=== PATIENT | female | born 1990 | race Caucasian/White ===

== ENCOUNTER 2022-01-01 11:15 | Emergency (ER) | payer BC, SELFPAY ==
--- NOTE | ~2022-01-01 | US_ITS ---
EXAMINATION: US pelvic complete w TV DATE: 01/01/2022 12:47 INDICATION: Pelvic pain Comparison:No prior studies for comparison. TECHNIQUE: Multiple transabdominal and endovaginal sonographic images of the pelvis performed. FINDINGS: The uterus measures 8 x 3.3 x 4.1 cm. There is an IUD in the endometrium. The endometrial c omplex measures 4.7 mm. The right ovary measures 4.6 x 2.4 x 4.5 cm and the left ovary measures 4.1 x 2.2 x 2.9 cm. There is a 1.7 cm right ovarian cyst. There are small follicles in each ovary. Normal doppler signal in both o varies. There is no free fluid in the pelvis. There are no abnormal masses seen on either side. IMPRESSION: 1. Right ovarian cyst measuring 1.7 cm. Reviewed, dictated and finalized at location A.
[2022-01-01 11:26] VITALS: BP 127/98; PULSE 84; RESP 18; TEMP 36.3; O2SAT 100
[2022-01-01 11:45] LABS: Basophils Percent Auto 0.6 % (0.2-1.2); Eosinophils Absolute Auto 0.1 K/mm3 (0-0.3); Eosinophils Percent Auto 2.5 % (0-4.4); Hematocrit 40.7 % (37.0-47.0); Hemoglobin 13.6 g/dL (12.0-15.0); Immature Granulocyte Absolute 0.01 K/mm3 (0.00-0.031); Immature Granulocyte Percent A 0.2 % (0-0.5); Lymphocytes Absolute Auto 1.49 K/mm3 (0.9-3.2); Lymphocytes Percent Auto 28.6 % (18.3-44.2); Mean Corpuscular HGB Conc 33.4 g/dl (32-36); Mean Corpuscular Hemoglobin 29.7 pg (26-34); Mean Corpuscular Volume 88.9 fl (80-100); Mean Platelet Volume 10.3 fl (7.4-10.4); Monocytes Absolute Auto 0.5 K/mm3 (0.1-0.6); Monocytes Percent Auto 9.2 % (2.6-8.5); Neutrophils Absolute Auto 3.1 K/mm3 (1.3-6.7); Neutrophils Percent Auto 58.9 % (45.5-73.1); Platelet Count Result 225 k/mm3 (150-375); Red Blood Count 4.58 M/mm3 (4.2-5.4); Red Cell Distribution Width 12.3 % (11.5-14.5); White Blood Count 5.2 K/mm3 (4.5-10.0)
[2022-01-01 11:47] LABS: Appearance Urine Clear (Clear); Bilirubin Urine Negative (Negative); Blood Urine Negative (Negative); Color Urine Yellow (Yellow); Glucose Urine UA Negative (Negative); Ketones Urine Negative (Negative); Leukocyte Esterase Ur Trace LEU/UL (Negative); Nitrate Urine Negative (Negative); Protein Urine Negative (Negative); Specific Grav Ur 1.025 (1.001-1.035); Urobilinogen Urine 0.2 mg/dL (<2.0); pH Urine 5.5 (5.0-9.0)
[2022-01-01 11:50] LABS: Bacteria Urine Trace /hpf; Mucus Urine Rare /lpf; RBC Urine 0-2 /hpf (0-2); Squamous Epithelial Cell Urine Many /hpf (Few); WBC Urine 0-3 /hpf
[2022-01-01 11:52] LABS: Add Urine Microscopic? NO
[2022-01-01 11:56] LABS: Alanine Aminotransferase 20 U/L (6-35); Albumin Level 4.8 g/dL (3.5-5.1); Alkaline Phosphatase 55 U/L (38-126); Anion Gap 12 mmol/L (8-16); Aspartate Amino Transferase 27 U/L (14-36); Bilirubin,Total 1.3 mg/dL (0.2-1.3); Blood Urea Nitrogen 8 mg/dL (7-17); Calcium 9.4 mg/dL (8.4-10.2); Carbon Dioxide 25 mmol/L (22-30); Chloride 104 mmol/L (98-107); Estimated CRCL calculation 81 ml/min; Estimated Glomerular Filt Rate > 60; Glucose 93 mg/dL (65-110); Lipase 72 U/L (23-300); Potassium 4.2 mmol/L (3.4-5.0); Sodium 141 mmol/L (137-145)
--- NOTE | 2022-01-01 12:11 | ED.ABDPAIN ---
HPI - Abdominal Pain General Chief Complaint: Abdominal Pain Stated Complaint: abd cramping Time Seen by Provider: 01/01/22 12:02 Source: RN notes reviewed History of Present Illness HPI narrative: Patient presents emergency room from home for abdominal pain. Patient states symptoms began yesterday afternoon the pain is located bilateral lower quadrants but is worse in the left lower quadrant. Pain described as sharp and stabbing and does not radiate. Patient states she did try taking Tylenol at home with no relief she denies any fevers or chills chest pain shortness of breath nausea vomiting diarrhea or any other symptoms. States that she has a history of ovarian cysts but usually they improved with Tylenol Related Data Allergies Allergy/AdvReac Type Severity Reaction Status Date / Time Sulfa (Sulfonamide Allergy Hives Verified 01/01/22 11:47 Antibiotics) Review of Systems Review of Systems: Gen.: Denies fevers or chills Eyes: Denies eye pain or visual change ENT: Denies congestion Respiratory: Denies shortness of breath or cough CV: Denies chest pain GI: See HPI denies burning, urgency, frequency or hematuria Musculoskeletal: Denies back pain or muscle pain Neuro: Denies numbness, tingling, weakness or focal weakness Skin: Denies rash Except as documented, all other systems reviewed and negative [facility] Past Medical History Medical History Anxiety Migraines Surgical History Surgical History Hx of breast lump removal (~2018) Family History Family History Mother Melanoma Social History Social History Social History: Caffeine-300mg daily Smoking status: Never smoker Alcohol intake: current Alcohol use details: wine or beer occasionally Exam Narrative: APPEARANCE: No acute distress, nontoxic, resting in bed HEENT: Normocephalic, atraumatic, OMM RESPIRATORY: No respiratory distress, clear to auscultation bilaterally with no rhonchi wheezing or rales CARDIOVASCULAR: RRR s murmur ABDOMINAL: Soft nondistended tender palpation in left lower quadrant and right lower quadrant worse on left no tenderness in right upper quadrant and left upper quadrant no rebound or guarding MUSCULOSKELETAl: Moves all extremities. No clubbing, cyanosis or edema. NEURO: Awake and alert. Following commands, speech normal, no focal deficits SKIN:: Warm, dry. Normal Color PSYCHIATRIC: Normal affect/mood Course Course Emergency Course: Patient states that they are feeling much better at this time. States abdominal pain has improved.. Discussed with patient results of workup and diagnosis. Discussed need for follow-up with primary care physician, reasons to return to the emergency department in proper use of medication. Patient understands and agrees to current treatment plan. The patient has an PRODUCT MANAGEMENT CONSULTANT that she follows with at [facility] Vital Signs Vital signs: Vital Signs Temperature 97.4 F L 01/01/22 11:26 Pulse Rate 84 01/01/22 11:26 Respiratory Rate 18 01/01/22 11:26 Blood Pressure 127/98 H 01/01/22 11:26 Pulse Oximetry 100 01/01/22 11:26 Temperature 97.4 F L 01/01/22 11:26 Pulse Rate 84 01/01/22 11:26 Respiratory Rate 18 01/01/22 11:26 Blood Pressure 127/98 H 01/01/22 11:26 Pulse Oximetry 100 01/01/22 11:26 MDM - Abdominal Pain MDM Narrative Medical decision making narrative: Patient's abdomen is soft without significant pain or signs of surgical abdomen on serial exams. Lab and x-ray evaluations are reviewed and patient is felt to be a reasonable candidate for outpatient management. Patient was instructed as to limitations of x-ray and laboratory evaluation and encouraged to return to ED or primary physician for repeat exam in 12 hours if continued or worsen
[2022-01-01] MEDS: KETOROLAC 30 MG/ML VIAL (*BKC) IV PUSH (12:40)
[2022-01-01] MEDS: SODIUM CHLORIDE 0.9% IV 1,000 ML 999 ML IV CONT (12:40)
[2022-01-01 13:33] VITALS: BP 125/78; PULSE 66; RESP 14; O2SAT 100
== END 2022-01-01 13:34 | disposition home or self-care (01) ==
PROVIDERS: Emergency Medicine; Emergency Provider Emergency Medicine
DX: N83.201 Unspecified ovarian cyst, right side (principal)
CPT/HCPCS: 36415; 76830; 76856; 80053; 81003; 81025; 83690; 85025; 96361; 96374; 99284; J1885; J7030

== ENCOUNTER 2022-07-02 15:39 | Outpatient (CLI) | payer BC, SELFPAY ==
[2022-07-02 19:54] LABS: Basophils Absolute Auto 0.1 K/mm3 (0.0-0.1); Basophils Percent Auto 0.8 % (0.2-1.2); Eosinophils Absolute Auto 0.2 K/mm3 (0-0.3); Eosinophils Percent Auto 2.6 % (0-4.4); Hematocrit 42.1 % (37.0-47.0); Hemoglobin 13.7 g/dL (12.0-15.0); Immature Granulocyte Absolute 0.03 K/mm3 (0.00-0.031); Immature Granulocyte Percent A 0.4 % (0-0.5); Lymphocytes Absolute Auto 1.95 K/mm3 (0.9-3.2); Lymphocytes Percent Auto 26.6 % (18.3-44.2); Mean Corpuscular HGB Conc 32.5 g/dl (32-36); Mean Corpuscular Hemoglobin 29.9 pg (26-34); Mean Corpuscular Volume 91.9 fl (80-100); Mean Platelet Volume 10.9 fl (7.4-10.4); Monocytes Absolute Auto 0.6 K/mm3 (0.1-0.6); Monocytes Percent Auto 7.6 % (2.6-8.5); Neutrophils Absolute Auto 4.6 K/mm3 (1.3-6.7); Platelet Count Result 258 k/mm3 (150-375); Red Blood Count 4.58 M/mm3 (4.2-5.4); Red Cell Distribution Width 12.9 % (11.5-14.5); White Blood Count 7.3 K/mm3 (4.5-10.0)
[2022-07-02 20:02] LABS: Alanine Aminotransferase 26 U/L (6-35); Albumin Level 4.6 g/dL (3.5-5.1); Alkaline Phosphatase 56 U/L (38-126); Anion Gap 12 mmol/L (8-16); Aspartate Amino Transferase 30 U/L (14-36); Bilirubin,Total 0.6 mg/dL (0.2-1.3); Blood Urea Nitrogen 14 mg/dL (7-17); Calcium 9.1 mg/dL (8.4-10.2); Carbon Dioxide 24 mmol/L (22-30); Chloride 104 mmol/L (98-107); Estimated Glomerular Filt Rate > 60; Glucose 102 mg/dL (65-110); Sodium 140 mmol/L (137-145)
[2022-07-02 20:11] LABS: Rheumatoid Factor < 8.6 IU/ML (<12)
[2022-07-02 20:26] LABS: Erythrocyte Sedimentation Rate 12 mm/hr (0-20)
[2022-07-02 20:51] LABS: Vitamin D 25 Hydroxy 39.7 ng/mL
[2022-07-07 07:18] LABS: Anti Nuclear Antibody Pattern Nuclear, Speckled
== END 2022-07-02 15:40 | disposition home or self-care (01) ==
LOC: ANHGOSHLAB 15:40
PROVIDERS: PCP Nurse Practitioner; Visit Provider Nurse Practitioner
DX: M25.40 Effusion, unspecified joint (principal); R53.83 Other fatigue; E55.9 Vitamin D deficiency, unspecified; E53.8 Deficiency of other specified B group vitamins
CPT/HCPCS: 36415; 80053; 82306; 82607; 84443; 85025; 85652; 86038; 86039; 86430

== ENCOUNTER 2022-08-29 08:47 | Outpatient (CLI) | payer BC, SELFPAY ==
--- NOTE | ~2022-08-29 | XR_ITS ---
EXAMINATION: XR foot LT standing 2V DATE: 08/29/2022 09:13 INDICATION: Systemic involvement of connective tissue, unspecified. TECHNIQUE: 2 views of left foot standing were obtained. COMPARISON: None. FINDINGS: Bone alignment is normal. No fracture. Joint spaces are well maintained. IMPRESSION: 1. Normal left foot. Reviewed, dictated and finalized at location A. RVISOR BENZENE REFINING IMPRESSION: 1. Normal left foot.
--- NOTE | ~2022-08-29 | XR_ITS ---
EXAMINATION: XR foot RT standing 2V DATE: 08/29/2022 09:13 INDICATION: Systemic involvement of connective tissue, unspecified. TECHNIQUE: 2 views of the right foot standing were obtained. COMPARISON: None. FINDINGS: Bone alignment is normal. No fracture. Joint spaces are well maintained. IMPRESSION: 1. Normal right foot. Reviewed, dictated and finalized at location A. EY BOY IMPRESSION: 1. Normal right foot.
--- NOTE | ~2022-08-29 | XR_ITS ---
EXAMINATION: XR hand BI arthritis min 3V DATE: 08/29/2022 09:13 INDICATION: Systemic involvement of connective tissue, unspecified. Multiple joint pain. TECHNIQUE: 4 views of right hand and 4 views of left hand on a total of 7 radiographs were obtained. COMPARISON: None. FINDINGS: RIGHT HAND: Bone alignment is normal. No fracture. Joint spaces are well maintained. LEFT HAND: Bone alignment is normal. No fracture. Joint spaces are well maintained. IMPRESSION: 1. No arthritis. Reviewed, dictated and finalized at location A. STIGATIVE WRITER IMPRESSION: 1. No arthritis.
== END 2022-08-29 08:48 ==
PROVIDERS: PCP Internal Medicine; Visit Provider Internal Medicine
DX: M35.9 Systemic involvement of connective tissue, unspecified (principal)
CPT/HCPCS: 73130; 73620

== ENCOUNTER 2022-08-29 09:44 | Outpatient (CLI) | payer BC, SELFPAY ==
[2022-08-29 17:37] LABS: Alanine Aminotransferase 24 U/L (6-35); Alkaline Phosphatase 56 U/L (38-126); Anion Gap 9 mmol/L (8-16); Aspartate Amino Transferase 36 U/L (14-36); Bilirubin,Total 0.7 mg/dL (0.2-1.3); Blood Urea Nitrogen 12 mg/dL (7-17); CRP 0.6 mg/dL (<1.0); Calcium 9.2 mg/dL (8.4-10.2); Carbon Dioxide 26 mmol/L (22-30); Chloride 100 mmol/L (98-107); Estimated Glomerular Filt Rate > 60; Glucose 84 mg/dL (65-110); Potassium 3.9 mmol/L (3.4-5.0); Sodium 135 mmol/L (137-145)
[2022-08-29 17:38] LABS: Complement C3 109 mg/dL (88-165)
[2022-08-29 18:03] LABS: Basophils Absolute Auto 0.1 K/mm3 (0.0-0.1); Basophils Percent Auto 1.3 % (0.2-1.2); Eosinophils Absolute Auto 0.2 K/mm3 (0-0.3); Eosinophils Percent Auto 3.7 % (0-4.4); Hematocrit 44.5 % (37.0-47.0); Hemoglobin 14.5 g/dL (12.0-15.0); Lymphocytes Absolute Auto 1.37 K/mm3 (0.9-3.2); Lymphocytes Percent Auto 29.9 % (18.3-44.2); Mean Corpuscular HGB Conc 32.6 g/dl (32-36); Mean Corpuscular Hemoglobin 29.6 pg (26-34); Mean Corpuscular Volume 90.8 fl (80-100); Mean Platelet Volume 10.9 fl (7.4-10.4); Monocytes Absolute Auto 0.5 K/mm3 (0.1-0.6); Monocytes Percent Auto 9.8 % (2.6-8.5); Neutrophils Absolute Auto 2.5 K/mm3 (1.3-6.7); Neutrophils Percent Auto 55.3 % (45.5-73.1); Platelet Count Result 244 k/mm3 (150-375); Red Cell Distribution Width 12.3 % (11.5-14.5); White Blood Count 4.6 K/mm3 (4.5-10.0)
[2022-08-29 18:14] LABS: Appearance Urine Clear (Clear); Bilirubin Urine Negative (Negative); Blood Urine Negative (Negative); Color Urine Yellow (Yellow); Glucose Urine UA Negative (Negative); Ketones Urine Negative (Negative); Leukocyte Esterase Ur Negative LEU/UL (Negative); Nitrate Urine Negative (Negative); Protein Urine Negative (Negative); Specific Grav Ur >= 1.030 (1.001-1.035); Urobilinogen Urine 0.2 mg/dL (<2.0); pH Urine 5.5 (5.0-9.0)
[2022-08-29 18:15] LABS: Add Urine Microscopic? NO
[2022-08-29 18:33] LABS: Erythrocyte Sedimentation Rate 8 mm/hr (0-20)
[2022-09-02 10:34] LABS: SM Antibody <1.0; SM/RNP Antibody <1.0; SS-A <1.0; SS-B <1.0
[2022-09-04 13:20] LABS: Lupus dRVVT Screen 35 sec (<=45); PTT-LA Screen 32 sec (<=40)
[2022-09-04 20:37] LABS: Anti Cyclic Citrullinated Pept <16 Units (<20)
[2022-09-11 15:20] LABS: Lupus dRVVT Additional Testing Not Indicated
== END 2022-08-29 09:45 | disposition home or self-care (01) ==
LOC: ANHGOSHLAB 09:46
PROVIDERS: PCP Internal Medicine; Visit Provider Internal Medicine
DX: M35.9 Systemic involvement of connective tissue, unspecified (principal); M19.90 Unspecified osteoarthritis, unspecified site
CPT/HCPCS: 36415; 80053; 81003; 85025; 85613; 85652; 85730; 86140; 86160; 86200; 86225; 86235

== ENCOUNTER 2023-03-24 10:52 | Outpatient (CLI) | payer BC, SELFPAY ==
[2023-03-24 14:04] LABS: Hematocrit 42.2 % (37.0-47.0); Hemoglobin 13.7 g/dL (12.0-15.0); Mean Corpuscular HGB Conc 32.5 g/dl (32-36); Mean Corpuscular Hemoglobin 29.8 pg (26-34); Mean Corpuscular Volume 91.9 fl (80-100); Mean Platelet Volume 10.7 fl (7.4-10.4); Platelet Count Result 223 k/mm3 (150-375); Red Blood Count 4.59 M/mm3 (4.2-5.4); Red Cell Distribution Width 12.6 % (11.5-14.5); White Blood Count 4.6 K/mm3 (4.5-10.0)
[2023-03-24 14:06] LABS: Appearance Urine Clear (Clear); Bacteria Urine None Seen /hpf; Bilirubin Urine Negative (Negative); Blood Urine Negative (Negative); Color Urine Yellow (Yellow); Glucose Urine UA Negative (Negative); Ketones Urine Trace mg/dL (Negative); Leukocyte Esterase Ur Negative LEU/UL (NEGATIVE); Nitrate Urine Negative (Negative); Non Pathogenic Casts 0-2; Protein Urine 1+ mg/dL (Negative); RBC Urine 0-2 /hpf (0-2); Specific Grav Ur 1.028 (1.001-1.035); Squamous Epithelial Cell Urine Occasional /hpf (Few); WBC Urine 0-5 /hpf (0-3); pH Urine 6.5 (5.0-9.0)
[2023-03-24 14:18] LABS: Add Urine Microscopic? YES
[2023-03-24 14:28] LABS: Blood Urea Nitrogen 10 mg/dL (7-17); CRP < 0.5 mg/dL (<1.0); Estimated Glomerular Filt Rate > 60
[2023-03-24 14:45] LABS: Erythrocyte Sedimentation Rate 9 mm/hr (0-20)
[2023-03-24 23:15] LABS: Creatinine Urine 294.5 mg/dL
[2023-03-24 23:46] LABS: Total Protein Urine Random < 5 mg/dL; Ur Ttl Prot Creatinine Ratio < 0.02 mg/mg (0-0.20)
== END 2023-03-24 10:53 | disposition home or self-care (01) ==
LOC: ANHGOSHLAB 10:55
PROVIDERS: PCP Internal Medicine
DX: M32.8 Other forms of systemic lupus erythematosus (principal)
CPT/HCPCS: 36415; 81001; 82565; 82570; 84156; 84520; 85027; 85652; 86140

== ENCOUNTER 2023-06-25 08:16 | Outpatient (NON) | payer BC, SELFPAY | END 2023-06-25 08:17 | disposition home or self-care (01) | LOC: ANHGOSHLAB 08:18 | PROVIDERS: PCP Family Medicine; Visit Provider Nurse Practitioner Family | DX: R63.5 Abnormal weight gain (principal) | CPT/HCPCS: 82530 ==

== ENCOUNTER 2023-08-20 09:57 | Outpatient (RCR) | payer BC, SELFPAY ==
[2023-08-20 18:46] LABS: Hematocrit 42.4 % (37.0-47.0); Hemoglobin 13.7 g/dL (12.0-15.0); Mean Corpuscular HGB Conc 32.3 g/dl (32-36); Mean Corpuscular Hemoglobin 29.9 pg (26-34); Mean Corpuscular Volume 92.6 fl (80-100); Mean Platelet Volume 10.6 fl (7.4-10.4); Platelet Count Result 263 k/mm3 (150-375); Red Blood Count 4.58 M/mm3 (4.2-5.4); Red Cell Distribution Width 12.4 % (11.5-14.5); White Blood Count 5.2 K/mm3 (4.5-10.0)
[2023-08-20 19:04] LABS: Alanine Aminotransferase 20 U/L (6-35); Appearance Urine Cloudy (Clear); Aspartate Amino Transferase 52 U/L (14-36); Bacteria Urine Rare /hpf; Bilirubin Urine Negative (Negative); Blood Urine Negative (Negative); CRP < 0.5 mg/dL (<1.0); Color Urine Yellow (Yellow); Cystine Crystals Urine Present /hpf; Glucose Urine UA Negative (Negative); Ketones Urine Negative (Negative); Leukocyte Esterase Ur 1+ LEU/UL (NEGATIVE); Need Manual Microscopic Reviewed; Nitrate Urine Negative (Negative); Non Pathogenic Casts 0-2; Protein Urine Negative (Negative); Specific Grav Ur 1.015 (1.001-1.035); Squamous Epithelial Cell Urine Moderate /hpf (Few); Urobilinogen Urine 0.2 mg/dL (<2.0); WBC Urine 0-5 /hpf (0-3); pH Urine 5.5 (5.0-9.0)
[2023-08-20 19:05] LABS: Add Urine Microscopic? YES
[2023-08-20 19:41] LABS: Erythrocyte Sedimentation Rate 15 mm/hr (0-20)
[2023-08-20 21:01] LABS: Creatinine Urine 117.1 mg/dL
[2023-08-20 21:39] LABS: Total Protein Urine Random < 5 mg/dL; Ur Ttl Prot Creatinine Ratio < 0.04 mg/mg (0-0.20)
== END 2023-11-18 23:59 | disposition home or self-care (01) ==
LOC: ANHGOSHLAB 09:57
PROVIDERS: PCP Family Medicine
DX: M32.8 Other forms of systemic lupus erythematosus (principal)
CPT/HCPCS: 36415; 81001; 82570; 84156; 84450; 84460; 85027; 85652; 86140

== ENCOUNTER 2023-09-10 16:25 | Outpatient (CLI) | payer BC, SELFPAY | END 2023-09-10 16:26 | disposition home or self-care (01) | LOC: ANHGOSHLAB 16:26 | PROVIDERS: PCP Family Medicine; Visit Provider Nurse Practitioner Family | DX: R30.0 Dysuria (principal) | CPT/HCPCS: 87086 ==

== ENCOUNTER 2023-09-22 08:12 | Outpatient (CLI) | payer BC, SELFPAY ==
[2023-09-22 11:48] LABS: Hematocrit 41.1 % (37.0-47.0); Hemoglobin 13.3 g/dL (12.0-15.0); Mean Corpuscular HGB Conc 32.4 g/dl (32-36); Mean Corpuscular Hemoglobin 29.8 pg (26-34); Mean Corpuscular Volume 91.9 fl (80-100); Mean Platelet Volume 11.5 fl (7.4-10.4); Platelet Count Result 186 k/mm3 (150-375); Red Blood Count 4.47 M/mm3 (4.2-5.4); White Blood Count 4.1 K/mm3 (4.5-10.0)
[2023-09-22 11:52] LABS: Appearance Urine Clear (Clear); Bacteria Urine 3+ /hpf; Bilirubin Urine Negative (Negative); Blood Urine Negative (Negative); Color Urine Yellow (Yellow); Glucose Urine UA Negative (Negative); Ketones Urine Negative (Negative); Leukocyte Esterase Ur 2+ LEU/UL (NEGATIVE); Nitrate Urine Negative (Negative); Protein Urine Trace mg/dL (Negative); Specific Grav Ur 1.025 (1.001-1.035); Squamous Epithelial Cell Urine Moderate /hpf (Few); Urobilinogen Urine 0.2 mg/dL (<2.0); WBC Urine 21-50 /hpf (0-3)
[2023-09-22 11:57] LABS: Add Urine Microscopic? YES
[2023-09-22 12:10] LABS: Alanine Aminotransferase 16 U/L (6-35); Aspartate Amino Transferase 34 U/L (14-36); Blood Urea Nitrogen 10 mg/dL (7-17); CRP < 0.5 mg/dL (<1.0); Estimated Glomerular Filt Rate > 60
[2023-09-22 12:20] LABS: Creatinine Urine 194.7 mg/dL
[2023-09-22 12:21] LABS: Erythrocyte Sedimentation Rate 10 mm/hr (0-20)
[2023-09-22 12:40] LABS: Total Protein Urine Random < 5 mg/dL; Ur Ttl Prot Creatinine Ratio < 0.03 mg/mg (0-0.20)
== END 2023-09-22 08:13 | disposition home or self-care (01) ==
LOC: ANHGOSHLAB 08:16
PROVIDERS: PCP Family Medicine
DX: M32.8 Other forms of systemic lupus erythematosus (principal)
CPT/HCPCS: 36415; 81001; 82565; 82570; 84156; 84450; 84460; 84520; 85027; 85652; 86140

== ENCOUNTER → 2023-12-02 10:41 | Outpatient (REF) | payer BC, SELFPAY | LOC: ANHLAB 10:41 | PROVIDERS: PCP Family Medicine; Visit Provider Plastic Surgery | DX: D48.5 Neoplasm of uncertain behavior of skin (principal) | CPT/HCPCS: 88305 ==

== ENCOUNTER 2023-12-21 11:29 | Outpatient (CLI) | payer BC, SELFPAY ==
--- NOTE | ~2023-12-21 | US_ITS ---
EXAMINATION: US soft tissue head and neck DATE: 12/21/2023 11:45 INDICATION: Localized enlarged lymph nodes. TECHNIQUE: Multiple grayscale and Doppler ultrasound images of the head and neck were obtained. COMPARISON: None FINDINGS: There is a normal lymph node in left neck in the patient's area of concern. IMPRESSION: 1. Normal lymph node in left neck in the patient's area of concern. Reviewed, dictated and finalized at location A.
== END 2023-12-21 11:30 ==
LOC: GOSHIMG 11:30
PROVIDERS: PCP Family Medicine; Visit Provider Nurse Practitioner
DX: R59.0 Localized enlarged lymph nodes (principal)
CPT/HCPCS: 76536

== ENCOUNTER 2024-03-23 14:33 | Outpatient (CLI) | payer BC, SELFPAY ==
[2024-03-23 19:39] LABS: Hematocrit 41.8 % (37.0-47.0); Mean Corpuscular HGB Conc 33.5 g/dl (32-36); Mean Corpuscular Hemoglobin 30.4 pg (26-34); Mean Corpuscular Volume 90.9 fl (80-100); Mean Platelet Volume 11.1 fl (7.4-10.4); Platelet Count Result 255 k/mm3 (150-375); Red Cell Distribution Width 12.2 % (11.5-14.5)
[2024-03-23 19:57] LABS: Add Urine Microscopic? YES; Appearance Urine Clear (Clear); Bacteria Urine None Seen /hpf; Bilirubin Urine Negative (Negative); Blood Urine Negative (Negative); Color Urine Yellow (Yellow); Glucose Urine UA Negative (Negative); Ketones Urine Negative (Negative); Leukocyte Esterase Ur Trace LEU/UL (Negative); Nitrate Urine Negative (Negative); Non Pathogenic Casts 0-2; Protein Urine Negative (Negative); RBC Urine 0-2 /hpf (0-2); Specific Grav Ur 1.012 (1.001-1.035); Squamous Epithelial Cell Urine None Seen /hpf (Few); Urobilinogen Urine 0.2 mg/dL (<2.0); WBC Urine 0-5 /hpf (0-3); pH Urine 5.5 (5.0-9.0)
[2024-03-23 19:58] LABS: Alanine Aminotransferase 17 U/L (6-35); Aspartate Amino Transferase 35 U/L (14-36); Blood Urea Nitrogen 13 mg/dL (7-17); CRP < 0.5 mg/dL (<1.0); Estimated Glomerular Filt Rate > 60
[2024-03-23 20:07] LABS: Creatinine Urine 70.7 mg/dL
[2024-03-23 20:10] LABS: Total Protein Urine Random < 5 mg/dL; Ur Ttl Prot Creatinine Ratio < 0.07 mg/mg (0-0.20)
== END 2024-03-23 14:34 | disposition home or self-care (01) ==
LOC: ANHGOSHLAB 14:35
PROVIDERS: PCP Family Medicine
DX: M32.8 Other forms of systemic lupus erythematosus (principal)
CPT/HCPCS: 36415; 81001; 82565; 82570; 84156; 84450; 84460; 84520; 85027; 86140

== ENCOUNTER 2024-05-21 21:52 | Emergency (ER) | payer BC, SELFPAY ==
--- NOTE | ~2024-05-21 | US_ITS ---
EXAMINATION: US OB <=14 wk fetus w TV DATE: 05/22/2024 00:39 INDICATION: Abdominal pain and and vaginal bleeding TECHNIQUE: Real-time pelvic ultrasound utilizing both a transvaginal and transabdominal probe was pe rformed. The interpreting radiologist was not present for the study. COMPARISON: None. FINDINGS: The uterus measures 7.4 x 3.4 x 5.5rrrr cm. There are a few anechoic nabothian cysts measuring up to 5 mm. The endometrial complex is thickened to 1.2 cm with 6 mm likely intrauterine gestational sac wi th double decidual sign. No evident internal yolk sac or pole identified. The right ovary measures 4.4 x 2.5 x 2.8 cm. And 1.5 cm isoechoic lesion without evident internal vas cular flow on color Doppler in the right ovary unclear whether solid or more likely complex cystic ei ther hemorrhagic cyst or corpus luteum cyst. The left ovary measures 3.3 x 2.4 x 2.5 cm. There is a t race amount of anechoic free fluid in the pelvis. IMPRESSION: 1. 6 mm intrauterine gestational sac without evident yolk sac or pole which remains equivocal f or early versus failed . Recommend correlation with serial beta-hCG levels with repeat imagi ng as clinically indicated. 2. 1.5 cm right ovarian lesion most likely a hemorrhagic cyst or corpus luteum cyst although differen tial would include a solid neoplasm. Recommend 6-12 week follow-up pelvic ultrasound. Reviewed, dictated and finalized at location A. IMPRESSION: 1. 6 mm intrauterine gestational sac without evident yolk sac or pole whi ch remains equivocal for early versus failed . Recommend correlation w ith serial beta-hCG levels with repeat imaging as clinically indicated. 2. 1.5 cm right ovarian lesion most likely a hemorrhagic cyst or corpus luteum cyst although differential would include a solid neoplasm. Recommend 6-12 week follow-up pelvic ultrasound.
[2024-05-21 21:56] VITALS: BP 139/70; PULSE 88; RESP 16; TEMP 36.9; O2SAT 100
[2024-05-21 22:32] VITALS: BP 105/75; PULSE 79; RESP 18; O2SAT 100
[2024-05-21 22:45] LABS: Basophils Absolute Auto 0.1 K/mm3 (0.0-0.1); Eosinophils Absolute Auto 0.2 K/mm3 (0-0.3); Eosinophils Percent Auto 3.6 % (0-4.4); Hematocrit 38.1 % (37.0-47.0); Hemoglobin 12.7 g/dL (12.0-15.0); Immature Granulocyte Absolute 0.01 K/mm3 (0.00-0.031); Immature Granulocyte Percent A 0.2 % (0-0.5); Lymphocytes Absolute Auto 2.06 K/mm3 (0.9-3.2); Lymphocytes Percent Auto 41.3 % (18.3-44.2); Mean Corpuscular HGB Conc 33.3 g/dl (32-36); Mean Corpuscular Hemoglobin 30.3 pg (26-34); Mean Corpuscular Volume 90.9 fl (80-100); Mean Platelet Volume 10.4 fl (7.4-10.4); Monocytes Absolute Auto 0.5 K/mm3 (0.1-0.6); Neutrophils Absolute Auto 2.2 K/mm3 (1.3-6.7); Neutrophils Percent Auto 43.9 % (45.5-73.1); Platelet Count Result 213 k/mm3 (150-375); Red Blood Count 4.19 M/mm3 (4.2-5.4); Red Cell Distribution Width 12.2 % (11.5-14.5)
[2024-05-21 22:56] LABS: Prothrombin Time 13.6 Seconds (11.1-14.7)
[2024-05-21 22:57] LABS: Partial Thromboplastin Time 28.7 Seconds (22.3-36.8)
[2024-05-21 22:58] LABS: Alanine Aminotransferase 17 U/L (6-35); Albumin Level 4.4 g/dL (3.5-5.1); Alkaline Phosphatase 44 U/L (38-126); Anion Gap 8 mmol/L (4-12); Aspartate Amino Transferase 25 U/L (14-36); Bilirubin,Total 0.5 mg/dL (0.2-1.3); Blood Urea Nitrogen 17 mg/dL (7-17); Calcium 9.4 mg/dL (8.4-10.2); Carbon Dioxide 28 mmol/L (22-30); Chloride 104 mmol/L (98-107); Estimated CRCL calculation 69 ml/min; Estimated Glomerular Filt Rate > 60; Glucose 103 mg/dL (65-110); Potassium 4.3 mmol/L (3.4-5.0); Sodium 140 mmol/L (137-145)
--- NOTE | 2024-05-22 00:06 | ED.FEMALEGU ---
HPI - Female Genitourinary General Chief complaint: Vaginal Bleeding <Albino Medina MD - Last Filed: 05/22/24 00:36> Stated complaint: vaginal bleeding, 6 weeks preg <Albino Medina MD - Last Filed: 05/22/24 00:36> Time Seen by Provider: 05/21/24 22:24 <Albino Medina MD - Last Filed: 05/22/24 00:36> Source: patient and family <lAbino Medina MD - Last Filed: 05/22/24 00:36> Mode of arrival: ambulatory <Albino Medina MD - Last Filed: 05/22/24 00:36> Limitations: no limitations <Albino Medina MD - Last Filed: 05/22/24 00:36> History of Present Illness HPI Narrative: 34-year-old 3 para 1 A1 about 6 weeks of gestation here with a complaint of heavy bright red vaginal bleeding for past few hours. She of states that she might have seen some clots. Has some lower abdominal discomfort. Denies being lightheaded. <Albino Medina MD - Last Filed: 05/22/24 00:36> MD elicited complaint: vaginal bleeding <Albino Medina MD - Last Filed: 05/22/24 00:36> Onset (ago): hour(s) (2) <Albino Medina MD - Last Filed: 05/22/24 00:36> Severity: moderate <MD Shawn Castellanos Last Filed: 05/22/24 00:36> Vaginal bleeding: moderate and bright red <MD Shawn Castellanos Last Filed: 05/22/24 00:36> Exacerbating factors: none <MD Shawn Castellanos Last Filed: 05/22/24 00:36> Relieving factors: none <MD Shawn Castellanos Last Filed: 05/22/24 00:36> Associated symptoms: denies other symptoms <MD Shawn Castellanos Last Filed: 05/22/24 00:36> Treatment prior to arrival: none <MD Shawn Castellanos Last Filed: 05/22/24 00:36> Related Data Allergies/Adverse reactions: Allergies Allergy/AdvReac Type Severity Reaction Status Date / Time Sulfa (Sulfonamide Allergy Hives Verified 05/21/24 22:33 Antibiotics) <Albino Medina MD - Last Filed: 05/22/24 00:36> Review of Systems Review of Systems: All systems reviewed & are unremarkable except as noted in HPI and below <Albino Medina MD - Last Filed: 05/22/24 00:36> Constitutional: Constitutional: Reports no additional constitutional complaints <Albino Medina MD - Last Filed: 05/22/24 00:36> Eyes: Eyes: Reports no additional eye complaints <Albino Medina MD - Last Filed: 05/22/24 00:36> ENT: Reports system reviewed and no additional complaints, except as documented <Albino Medina MD - Last Filed: 05/22/24 00:36> Cardiovascular: Cardiovascular: Reports no additional cardiovascular complaints <Albino Medina MD - Last Filed: 05/22/24 00:36> Respiratory: Respiratory: Reports no additional respiratory complaints <Albino Medina MD - Last Filed: 05/22/24 00:36> Gastrointestinal: Gastrointestinal: Reports no additional gastrointestinal complaints <Albino Medina MD - Last Filed: 05/22/24 00:36> Genitourinary: Genitourinary: Reports as per HPI <Albino Medina MD - Last Filed: 05/22/24 00:36> Musculoskeletal: Musculoskeletal: Reports no additional musculoskeletal complaints <Albino Medina MD - Last Filed: 05/22/24 00:36> [facility] Past Medical History Medical History: Medical History Abnormal weight Anxiety Lupus (systemic lupus erythematosus) Migraines Undifferentiated connective tissue disease <Albino Medina MD - Last Filed: 05/22/24 00:36> Surgical History Surgical History: Surgical History Hx of breast lump removal (~2018) Hx of tonsillectomy <Albino Medina MD - Last Filed: 05/22/24 00:36> Family History Family History: Family History Mother Melanoma <Albino Medina MD - Last Filed: 05/22/24 00:36> Social History Social History: Social History Social History: Caffeine-300mg daily Smoking status: Never smoker
[2024-05-22 01:02] VITALS: BP 106/66; PULSE 74; RESP 17; O2SAT 100
== END 2024-05-22 03:35 | disposition home or self-care (01) ==
PROVIDERS: Emergency Medicine; Emergency Provider Family Medicine; PCP Family Medicine
DX: O20.0 Threatened abortion (principal); Z3A.01 Less than 8 weeks gestation of pregnancy
CPT/HCPCS: 36415; 76801; 76817; 80053; 84702; 85025; 85461; 85610; 85730; 86850; 86900; 86901; 99284

== ENCOUNTER 2024-10-04 18:58 | Emergency (ER) | payer BC, SELFPAY ==
--- NOTE | ~2024-10-04 | US_ITS ---
EXAMINATION: US venous doppler LE RT DATE: 10/04/2024 19:48 INDICATION: pain in calf . TECHNIQUE: Grayscale images without and with compression and Doppler images of the right lower extrem ity veins were obtained. COMPARISON: None FINDINGS: The right common femoral vein, profunda (deep) femoral vein, femoral vein, popliteal vein, peroneal v ein, posterior tibial veins, gastrocnemius vein, and greater saphenous vein are patent. IMPRESSION: Patent right lower extremity veins. No evidence of deep venous thrombosis. Reviewed, dictated and finalized at location K. ATIENT CODER
--- OUTSIDE RECORDS SUMMARY | 2024-10-04 19:01 | XMS_ITS | Referral Summary ---
Author Organization [facility] Address [address] [place] [address] Care Team Providers Care Psychologist Research Assistant Name Role Phone Unavailable Primary Care Provider Unavailabl e Source Comments [facility],non-owned Affiliates and Associated Physician Practices is amultiple site organization consisting of ambulatory clinics and hospital sitesin [place], [place], [place]. This disclosure is being madepursuant to the Care Everywhere program and may not contain all information available regarding this patient. Last updated 18.[facility] Allergies Active Allergy Reactions Criticality Noted Date Comments Sulfa Drugs 06/15/2015 Hives Sulfa Drugs Urticaria Medium 12/03/2016 Medications * Be aware that medications may not be up to date on this document. Alwaysverify current medications with the patient. Medication Sig Dispensed Refills Start Date End Date Status citalopram (CELEXA) 40 MG tablet Take 40 mg by mouth once daily Active Other Migraine pill Active naproxen (NAPROSYN) 500 MG tablet Take 1 Tab by mouth 2 times daily as needed for Pain 20 Tab 0 06/15/2015 Active Citalopram Hydrobromide (CITALOPRAM PO) Take 20 mg by mouth Active Social History Tobacco Use Types Packs/Day Years Used Date Smoking Tobacco: Never Smokeless Tobacco: Never Alcohol Use Standard Drinks/Week Comments Yes 0 (1 standard drink = 0.6 oz pur e alcohol) occasional Sex and Gender Information Value Date Recorded Sex Assigned at Not on file Gender Identity Not on file Sexual Orientation Not on file Last Filed Vital Signs Vital Sign Reading Time Taken Comments Blood Pressure 114/68 04/25/2020 9:03 AM CDT Pulse 73 04/25/2020 9:03 AM CDT Temperature 36.6 C (97.9 F) 04/25/2020 9:03 AM CDT Respiratory Rate 18 04/25/2020 9:03 AM CDT Oxygen Saturation 98% 04/25/2020 9:03 AM CDT Inhaled Oxygen Concentration - - Weight 65.8 kg (145 lb) 04/25/2020 9:03 AM CDT Height 157.5 cm (5' 2 ) 04/25/2020 9:03 AM CDT Body Mass Index 26.52 04/25/2020 9:03 AM CDT Plan of Treatment Not on file Administered Medications PATTI HERNANDEZ Personal/Family Spouse [facility] [place] [address] PATTI HERNANDEZ Personal/Family Spouse [address] [place] [address] [place] [address] PATTI HERNANDEZ Personal/Family Spouse [address] [place] [address] [place] [address]
--- OUTSIDE RECORDS SUMMARY | 2024-10-04 19:01 | XMS_ITS | Clinical Summary ---
Author Organization [facility] Address [address] [place] [address] Care Team Providers Care Scrap Metal Processing Worker Name Role Phone Unavailable Primary Care Provider Unavailabl e Source Comments [facility],non-owned Affiliates and Associated Physician Practices is amultiple site organization consisting of ambulatory clinics and hospital sitesin [place], [place], [place] and [place]. This disclosure is being madepursuant to the Care Everywhere program and may not contain all information available regarding this patient. Last updated 18.[facility] Allergies Active Allergy Reactions Criticality Noted Date [...] 04/25/2020 9:03 AM CDT Plan of Treatment Health Maintenance Due Date Last Done Comments PAP SMEAR 1991 HIV SCREENING 2006 HEPATITIS C SCREENING 01/13/2009 DTAP/TDAP/TD VACCINES (1 - Tdap) 2010 HEPATITIS B VACCINE (1 of 3 - 19+ 3-dose series) 2010 COVID-19 VACCINE (2023-2 5 season) 2024 12/13/2020, 11/17/2020 INFLUENZA VACCINE (#1) 2024 05/06/2016 DEPRESSION SCREENING 08/17/2024 ZOSTER VACCINE (1 of 2) 2041 HIB VACCINE Aged Out No longer eligi ble based on patient's age to complete this topic HPV VACCINE Aged Out No longer eligi ble based on patient's age to complete this topic MENINGOCOCCAL (Group B) VACCINE Aged Out No longer eligible b ased on patient's age to complete this topic MENINGOCOCCAL VACCINE Aged Out No zyada jennie eligible based on patient's age to complete this topic PNEUMOCOCCAL VACCINE Aged Out No long er eligible based on patient's age to complete this topic PATTI ESTEVEZ Personal/Family Spouse [facility] [place] [address] PATTI ESTEVEZ Personal/Family Spouse [address] [address] PATTI ESTEVEZ Personal/Family Spouse [address] [facility] [address]
--- OUTSIDE RECORDS SUMMARY | 2024-10-04 19:01 | XMS_ITS | Clinical Summary ---
Author Organization [facility] Address [address] [place] [address] Care Team Providers Care Official Greeter Name Role Phone No, Physician Primary Care Provider [phone] Allergies Active Allergy Reactions Criticality Noted Date Comments Sulfa (Sulfonamide Antibiotics) Hives Medium Medications hydroxychloroqu ine (PLAQUENIL) 200 mg tablet Take 1 tablet (200 mg total) by mouth 2 (two) times a day Active semaglutide (Wegovy) 0.25 mg/0.5 mL auto-injectorIn dications:Weigh t Loss Management for Obese Patient (BMI >= 30) Inject 0.5 mL (0.25 mg total) under the skin every 7 days Not starting until after 07/04 surgery Active ibuprofen (ADVIL,MOTRIN) 600 mg tablet Take 1 tablet (600 mg total) by mouth every 6 (six) hours as needed for pain (pain) Note that the over the counter pills are 200mg each. Take 3 tablets of the 200mg to equal 600mg. 07/04/2024 Active ibuprofen (ADVIL,MOTRIN) 600 mg tablet Take 1 tablet (600 mg total) by mouth every 6 (six) hours as needed for pain Take with food 20 tablet 07/04/2024 Active Active Problems Problem Noted Date Diagnosed Date Missed 06/14/2024 Encounter for contraceptive management 4 Right ovarian cyst 02/03/2024 Overview (02/03/2024): Frequent ovarian cysts noted throughout her adult life. Currently there is a right ovarian cyst, 3cm, with internal debris and no intracystic doppler flow. Assessment & Plan (02/03/2024 5:30 PM CDT): The cyst appears benign in the right ovary based on no growth in 2 months, no internal intracystic Doppler flow, no free fluid, no family history of ovarian cancer, and her age of 34 years. Plan: Repeat ultrasound at [facility] in 1-2 months We discussed possible surgical intervention and that this could lead to the need to remove the entire right ovary which may hasten her eventual menopause. We also discussed surgical risks such as bleeding, infection, and injury. Furthermore we discussed the removal of the cyst or ovary may not in fact remove her pain Consider pelvic physical therapy if dyspareunia persists (she has used this with success in the past) She opts to try a course of oral contraceptive pills a low dose to see if this helps reduced new cyst formation. We discussed the risk for DVT/PE/stimulation of breast cancer with use of OCP Comments Yes Encounters Date Type Department Care Team Description 07/18/2024 1:45 PM KARATE INSTRUCTOR Office Visit [facility] [address] [facility] [address] [place] [phone] Charles Real MD Postop check (Primary Dx) 07/05/2024 Telephone [facility] [address] [facility] [address] [place] [phone] Charles Real MD postop question 07/04/2024 9:46 AM KARATE INSTRUCTOR Anesthesia Event [facility] Operating Room [facility] [place] [address] Joshua Sheriff MD Salameh, Besan Mohammed, PA 07/04/2024 9:15 AM KARATE INSTRUCTOR - 07/04/2024 11:35 AM KARATE INSTRUCTOR Surgery [facility] Operating Room [facility] [place] [address] Charles Real MD Laparoscopic Bilateral Salpingectomy 07/04/2024 7:21 AM KARATE INSTRUCTOR - 07/04/2024 12:50 PM KARATE INSTRUCTOR Hospital Encounter [facility] Operating Room [address] [place] [phone] Charles Real MD Missed ; Encounter for contraceptive management, unspecified type Discharge Disposition: Discharge to home or self care 07/04/2024 Orders Only 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 No 05/19/2024 Within the last year, have y ou been humiliated or emotionally abused in other ways by your partner or ex-partner? No Within the last year, have y ou been kicked, hit, slapped, or otherwise physically hurt by your partner or ex-partner? No 05/19/2024 Within the last year, have y ou been raped or forced to have any kind of sexual activity by your partner or ex-partner? No 05/19/2024 AUDIT-C Answer Date Recorded Q1: How often do you have a drink containing alc ohol? Monthly or less 06/20/2024 Q2: How many drinks containi ng alcohol do you have on a typical day when you are drinking? 1 or 2 06/20/2024 Q3: How often do you have si x or more drinks on one occasion? Never 06/20/2024 Personal Safety Answer Date Recorded Have you ever been in or are you currently in a harmful physical or emotional relationship or is someone making you feel afraid or unsafe? 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 Not on file Not on file Not on file Obstetrics History Para Term AB IAB SAB Ectopic Multiple Livin g Live Births 3 1 1 0 1 0 1 0 0 1 1 Date Outcome GA Total Labor Labor// Weight Sex Type Anes PTL Cristina A1 A5 Name Clin 2015 Term M Vaginal Living Higinio 06/05 23 SAB SAB Current Comments 2015-Vag, Male-Higinio Summary Episode Dates Number of Fetuses Estimated Date of Delivery 04/27/2024 - Present (10/04/2024) Unknown Vitals Pregravid Weight Height TWG (As of 10/04/2024) Pregrav id BMI 157.5 cm (5' 2 ) Notes Progress Notes - Office Visi t - 07/18/2024 - GA: 07/18/2024 - Asmita Real MD Images from the original note were not included. Postoperative Visit Christian Hernandez is a 34 y.o. returning for a post op visit. She is 2 weeks s/p suction D&C . Pathology: POC plus 2 complete fallopian tubes Christian reports no vaginal bleeding, no pain, and normal healing of the incisions Current Outpatient Medications: hydroxychloroquine, 200 mg, oral, BID ibuprofen, 600 mg, oral, Q6H PRN ibuprofen, 600 mg, oral, Q6H PRN Wegovy, 0.25 mg, subcutaneous, Q7 Days Vitals Ht 157.5 cm (5' 2 ) Wt 143 lb (64.9 kg) BMI 26.16 kg/m Physical Exam: General: alert, orientated Surgical site: abdominal incision(s) well healed, soft, non-tender Sock Knitter exam: not indicated at this appointment Assessment/Plan: Meeting all postoperative milestones Pathology reviewed Safe to resume gentle exercise, and sexual activity now Follow up: here in 6 months for WWE Discussed potential need for OCPs if the ovarian cysts recur Charles Real MD TE INSTRUCTOR Last Filed Vital Signs Vital Sign Reading Time Taken Comments Blood Pressure 95/70 07/04/2024 12:10 PM KARATE INSTRUCTOR Pulse 70 07/04/2024 12:10 PM KARATE INSTRUCTOR Temperature 36.7 C (98.1 F) 07/04/2024 11:00 AM KARATE INSTRUCTOR Respiratory Rate 17 07/04/2024 12:10 PM KARATE INSTRUCTOR Oxygen Saturation 100% 07/04/2024 12:10 PM KARATE INSTRUCTOR Inhaled Oxygen Concentration - - Weight 64.9 kg (143 lb) 07/18/2024 1:50 PM KARATE INSTRUCTOR Height 157.5 cm (5' 2 ) 07/18/2024 1:50 PM KARATE INSTRUCTOR Body Mass Index 26.16 07/18/2024 1:50 PM KARATE INSTRUCTOR Plan of Treatment Health Maintenance Due Date Last Done Comments Cervical Cancer Screening 1990 Depression Screening 1990 Hepatitis C Screening 1990 Varicella Vaccines (1 of 2 - 13+ 2-dose series) 01/19/2004 Hepatitis B Screening 2009 Regular Well Visit/Exam 18-64 2009 Pneumococcal vaccine <65 (1 of 2 - PCV) 2010 Zoster Vaccine (1 of 2) 2010 Covid-19 Vaccine (4 - 2023-2 5 season) 2024 08/23/2021, 12/13/2020, 11/17/2020 Influenza Vaccine (#1) 2024 3, 05/22/2019, 05/06/2016 DTaP/Tdap/Td Vaccine (2 - Td or Tdap) 07/15/2026 07/15/2016 HPV Vaccines Aged Out No longer eligi ble based on patient's age to complete this topic Procedures Procedure Name Priority Date/Time Associated Diagnosis Comments DC AN PROCEDURE PLACEHOLDER Routine 07/04/2024 11:02 AM KARATE INSTRUCTOR DC AN ELECTIVE ENDOTRACHEAL AIRWAY Routine 07/04/2024 11:02 AM KARATE INSTRUCTOR SURGICAL PATHOLOGY Routine 07/04/2024 10 :24 AM KARATE INSTRUCTOR SUCTION DILATION AND CURETTAGE 07/04/2024 9:50 AM KARATE INSTRUCTOR Missed Encounter for contraceptive management, unspecified type LAPAROSCOPIC SALPINGECTOMY 07/04/2024 9:50 AM KARATE INSTRUCTOR Missed Encounter for contraceptive management, unspecified type from Last 3 Months Results * DC AN ELECTIVE ENDOTRACHEAL AIRWAY, DC AN PROCEDURE PLACEHOLDER (07/04/2024 11:02 AM KARATE INSTRUCTOR) Narrative Millie Hilton CRNA - 07/04/2024 11:02 AM KARATE INSTRUCTOR Millie Hilton CRNA 07/04/2024 11:03 AM Airway Patient location: OR Urgency: elective Indications for airway management: anesthesia Difficult airway: no Staff: Placed by: BIOLOGY TUTOR: Millie Hilton CRNA Emergent airway documentation: Risks and benefits discussed: yes Consent obtained: yes Consent given by: patient Airway prep: Preoxygenated: yes Patient position: sniffing MILS maintained throughout: yes Mask difficulty assessment: 1 - vent by mask Spontaneous ventilation during airway: absent Sedation level during airway: GA Final airway details: Final airway type: endotracheal airway Tube type: ETT ETT size: 7.0 mm Cuffed: yes Technique used for successful ETT placement: video laryngoscopy Devices/Methods used in placement: stylet Insertion site: oral Blade type: Miguel Video blade type: Peralta Blade size: 3 Cormack-Lehane (video): grade I - full view of glottis Cuff inflated with: air ETT to lips: 22 cm Placement verified by: auscultation and CO2 detection Airway secured with: silk tape Number of attempts: 1 Joshua Sheriff MD ANESTHESIA ORDERAB LES Final Result * Surgical pathology (07/04/2024 10:24 AM KARATE INSTRUCTOR) Fallopian tube, sterilization 07/04/2024 10:24 AM KARATE INSTRUCTOR 07/04/2024 12:48 PM KARATE INSTRUCTOR Narrative 07/05/2024 1:36 PM KARATE INSTRUCTOR [id number] [place], [place] [address] Tele: Kesha Casey MD - Privacy Specialist Note to Patients: This report may contain a detailed description of human tissue sent by a health care provider to the laboratory for pathologic evaluation. The content of this report is essential for diagnosis and may provide important critical findings. This information may be unfamiliar to patients to review without a medical professional present. It is advised that the patient review this report in the presence of a health care provider who can answer questions and explain the details. SURGICAL PATHOLOGY REPORT Patient Name: CHRISTIAN HERNANDEZ Address: [address] [place] [address] Gender: F : 1990 (Age: 34) Service: Surgery Location: [facility] [place], Hospital #: [id number] Patient Type: [facility] SURGERY Taken: 07/04/2024 Received 07/04/2024 Reported: 07/05/2024 Physician(s): Charles Real M.D. DIAGNOSIS: Fallopian tubes, bilateral salpingectomy for sterilization: - Two benign completely transected fallopian tubes, with cystic [place]ard rests Uterus, endometrium, dilatation and curettage: - Immature chorionic villi and decidualized endometrium 07/05/2024 13:36 Examining Pathologist: Gonzalo Mansfield M.D. Report Reviewed and Electronically Signed By Gonzalo Mansfield M.D. SPECIMEN TYPE: A: BILATERAL FALLOPIAN TUBES B: PRODUCTS OF CONCEPTION CLINICAL IMPRESSION AND HISTORY: Missed , encounter for contraceptive management, unspecified type GROSS DESCRIPTION: A. Received in formalin labeled CHRISTIAN ZENAIDA and bilateral fallopian tubes are two unoriented fimbriated fallopian tubes measuring 5 cm in length and 0.3 cm in diameter. The external surface of both fallopian tubes are smooth. Both fallopian tubes are sectioned to show an unremarkable lumen. Image Processing Engineer sections are submitted as follows: as follows: A1 - One fallopian tube A2 - Opposing fallopian tube B. Received in formalin labeled CHRISTIAN ZENAIDA and products of conception is a suction container containing multiple rg tissue fragments, 3 x 2 x 1 cm in aggregate. No definitive parts are grossly identified. Possible villous tissue is identified. Image Processing Engineer sections including the possible villous tissue are submitted in B1-B2. jxi/07/04/2024 12:59 LKB,JXI MICROSCOPIC DESCRIPTION: Microscopic examination supports the above captioned diagnoses. Clerical Data Follows A; 17020 B; 95096 REPORT IMAGES AND/OR SCANNED DOCUMENTS ONLY VIEWABLE IN PDF FORMAT The immunohistochemical test(s) cited in this report, if any, was developed and its performance characteristics determined by [facility] Pathology Department. It has not been cleared or approved by the U.S. Food and Drug Administration. The FDA has determined that such clearance or approval is not necessary. This test is used for clinical purposes. It should not be regarded as investigational or for research. [facility] Laboratory is certified under the Clinical Laboratory Improvement Amendments of 1988 (CLIA) as qualified to perform high complexity testing. Immunostains were performed on formalin-fixed paraffin embedded tissue using a polymer diaminobenzidine chromogen detection system. Antibodies used may include clone SP1 (rabbit monoclonal, estrogen receptor), clone 1E2 (rabbit monoclonal progesterone receptor), Ki-67 (rabbit monoclonal, 30-9), CD117 (rabbit polyclonal, c-kit), and anti-Her-2/pacheco (4B5) (rabbit monoclonal primary antibody). In the event that immunohistochemistry or special stains have been performed, attending physician has confirmed appropriateness of controls. Frozen section, operating room consultation, gross examination and dissection, and case sign out may have been performed in part or completely in the following laboratories: [facility], [facility] [address], [address] [place] [address]. Charles Real MD LAB PATHOLOGY ORDERABLES Final Result from Last 3 Months Insurance [facility] [facility] [place] [phone] [facility] [place] Care Teams Official Greeter Relationship Specialty Start Date End Date No, Physician PCP - General 06/10/19
--- OUTSIDE RECORDS SUMMARY | 2024-10-04 19:01 | XMS_ITS | Patient Health Summary ---
Author Organization [facility] Address [address] [facility] [place] [address] Care Team Providers Care Ec Teacher Name Role Phone Unavailable Primary Care Provider Unavailabl e Note from [facility],non-owned Affiliates and Associated Physician Practices is amultiple site organization consisting of ambulatory clinics and hospital sitesin [place], [place], [place] and [place]. This disclosure is being madepursuant to the Care Everywhere program and may not contain all information available regarding this patient. Last updated 18.[facility] Allergies * Sulfa Drugs(Hives) * Sulfa Drugs(Urticaria) -Medium Criticality Medications * Be aware that medications may not be up to date on this document. Alwaysverify current medications with the patient. * citalopram (CELEXA) 40 MG tablet Take 40 mg by mouth once daily * Other Migraine pill * naproxen (NAPROSYN) 500 MG tablet(Started 06/15/2015) Take 1 Tab by mouth 2 times daily as needed for Pain * Citalopram Hydrobromide (CITALOPRAM PO) Take 20 mg by mouth Social History Tobacco Use Types Packs/Day Years [...] Mass Index 26.52 04/25/2020 9:03 AM CDT Procedures * SKIN TEST PPD - POINT OF CARE(Performed 12/05/2016) Performed for Screening examination for pulmonary tuberculosis * XR FOOT LEFT 3VW OR MORE(Performed 06/15/2015) Performed for Left foot pain Results * SKIN TEST PPD - POINT OF CARE (12/05/2016) PPD 0 mm induration MISCELLANEOUS SAMPLE S / Unknown 12/05/2016 Fernando Sam APRN-SUPERVISOR [facility] - POINT OF CARE ORDERABLES * XR FOOT 3+ VW LEFT (06/15/2015 4:24 PM CDT) Anatomical Region Laterality Modality Ankle / Foot Radiographic Luna ging 06/15/2015 4:40 PM CDT Narrative 06/15/2015 4:40 PM CDT Left foot, 3 view History: Pain The osseous structures and soft tissues are normal. The joint spaces are preserved. Procedure Note Gera Menard MD - 06/15/2015 Left foot, 3 view History: Pain The osseous structures and soft tissues are normal. The joint spaces are preserved. [facility]
--- OUTSIDE RECORDS SUMMARY | 2024-10-04 19:01 | XMS_ITS | Referral Summary ---
Author Organization [facility] Address [address] [place] [address] Care Team Providers Care Bus And Trolley Inspecting Dispatcher Name Role Phone No, Physician Primary Care Provider [phone] Encounters Date Type Department Care Team Description 07/18/2024 1:45 PM GEAR MACHINIST Office Visit [facility] [address] [facility] Medical Office [address], [place] [address] Charles Real MD Postop check (Primary Dx) 07/05/2024 Telephone [facility] Office [address], [place] [address] Charles Real MD postop question 07/04/2024 Orders Only [facility] Operating Room [address] [place] [phone] Charles Real MD 07/04/2024 9:15 AM GEAR MACHINIST - 07/04/2024 11:35 AM GEAR MACHINIST Surgery [facility] Operating Room [address] [place] [phone] Charles Real MD Laparoscopic Bilateral Salpingectomy 07/04/2024 9:46 AM GEAR MACHINIST Anesthesia Event [facility] Operating Room [address] [place] [phone] Joshua Sheriff MD Salameh, Besan Mohammed, [place] 07/04/2024 7:21 AM GEAR MACHINIST - 07/04/2024 12:50 PM GEAR MACHINIST Hospital Encounter [facility] Operating Room [address] [place] [address] Charles Real MD Missed ; Encounter for contraceptive management, unspecified type Discharge Disposition: Discharge to home or self care from Last 3 Months Allergies Active Allergy Reactions Criticality Noted Date [...] Date Missed 06/14/2024 Encounter for contraceptive management Right ovarian cyst 02/03/2024 Overview (02/03/2024): Frequent [...] of 34 years. Plan: Repeat ultrasound at [facility] We [...] cancer with use of OCP Comments Yes Immunizations Immunization Administration Dates Next Due Influenza, Trivalent, IM (DONNA) 05/06/2016 Tdap 07/15/2016 Social History Tobacco Use Types Packs/Day Years [...] on file Legal Sex Female 4:14 AM GEAR MACHINIST Gender Identity Not on file Sexual Orientation Not on file Occupation Industry Job Start Date Job End Date [employer] Worker Not on file Not on file Not on file Last Filed Vital Signs Vital Sign Reading Time Taken Comments Blood Pressure 95/70 07/04/2024 12:10 PM GEAR MACHINIST Pulse 70 07/04/2024 12:10 PM GEAR MACHINIST Temperature 36.7 C (98.1 F) 07/04/2024 11:00 AM GEAR MACHINIST Respiratory Rate 17 07/04/2024 12:10 PM GEAR MACHINIST Oxygen Saturation 100% 07/04/2024 12:10 PM GEAR MACHINIST Inhaled Oxygen Concentration - - Weight 64.9 kg (143 lb) 07/18/2024 1:50 PM GEAR MACHINIST Height 157.5 cm (5' 2 ) 07/18/2024 1:50 PM GEAR MACHINIST Body Mass Index 26.16 07/18/2024 1:50 PM GEAR MACHINIST Plan of Treatment Not on file Procedures Procedure Name Priority Date/Time Associated Diagnosis Comments IN AN PROCEDURE PLACEHOLDER Routine 07/04/2024 11:02 AM GEAR MACHINIST IN AN ELECTIVE ENDOTRACHEAL AIRWAY Routine 07/04/2024 11:02 AM GEAR MACHINIST SURGICAL PATHOLOGY Routine 07/04/2024 10 :24 AM GEAR MACHINIST SUCTION DILATION AND CURETTAGE 07/04/2024 9:50 AM GEAR MACHINIST Missed Encounter for contraceptive management, unspecified type LAPAROSCOPIC SALPINGECTOMY 07/04/2024 9:50 AM GEAR MACHINIST Missed Encounter for contraceptive management, unspecified type from Last 3 Months Results * IN AN ELECTIVE ENDOTRACHEAL AIRWAY, IN AN PROCEDURE PLACEHOLDER (07/04/2024 11:02 AM GEAR MACHINIST) Narrative Millie Hilton CRNA - 07/04/2024 11:02 AM GEAR MACHINIST Millie Hilton CRNA 07/04/2024 11:03 AM Airway Patient location: OR Urgency: elective Indications for airway management: anesthesia Difficult airway: no Staff: Placed by: SPRAY MAKER: Millie Hilton CRNA Emergent airway documentation: Risks [...] with: silk tape Number of attempts: 1 us Joshua Sheriff MD ANESTHESIA ORDERAB LES Final Result * Surgical pathology (07/04/2024 10:24 AM GEAR MACHINIST) Fallopian tube, sterilization 07/04/2024 10:24 AM GEAR MACHINIST 07/04/2024 12:48 PM GEAR MACHINIST Narrative 07/05/2024 1:36 PM GEAR MACHINIST [address] [address] Tele: Kesha Casey MD - Head Of Measurement & Insights Note to Patients: This report may contain [...] the details. SURGICAL PATHOLOGY REPORT Patient Name: PATTI HERNANDEZ Address: [address] [place] [address] Gender: F : 1990 (Age: 34) Service: Surgery Location: [facility] [place], Hospital #: [id number] Patient Type: [facility] SAME DAY SURGERY Taken: 07/04/2024 Received 07/04/2024 Reported: 07/05/2024 Physician(s): Charles C. Addie, M.D. DIAGNOSIS: Fallopian tubes, bilateral salpingectomy for sterilization: - Two benign completely transected fallopian tubes, with cystic [place] rests Uterus, endometrium, dilatation and curettage: - Immature chorionic villi and decidualized endometrium jap07/05/2024 13:36 Examining Pathologist: Gonzalo Mansfield M.D. Report Reviewed and Electronically Signed By Gonzalo Mansfield M.D. SPECIMEN TYPE: A: BILATERAL FALLOPIAN TUBES B: PRODUCTS OF CONCEPTION CLINICAL IMPRESSION AND HISTORY: Missed , encounter for contraceptive management, unspecified type GROSS DESCRIPTION: A. Received in formalin labeled PATTI HERNANDEZ and bilateral fallopian tubes are two unoriented fimbriated fallopian tubes measuring 5 cm in length and 0.3 cm in diameter. The external surface of both fallopian tubes are smooth. Both fallopian tubes are sectioned to show an unremarkable lumen. Jig And Fixture Maker sections are submitted as follows: as follows: A1 - One fallopian tube A2 - Opposing fallopian tube B. Received in formalin labeled PATTI HERNANDEZ and products of conception is a suction container containing multiple rg tissue fragments, 3 x 2 x 1 cm in aggregate. No definitive parts are grossly identified. Possible villous tissue is identified. Jig And Fixture Maker sections including the possible villous tissue are submitted in B1-B2. jxi/07/04/2024 12:59 ANGLE,NERISSA MICROSCOPIC DESCRIPTION: Microscopic examination supports the above captioned diagnoses. Clerical Data Follows A; [id number] B; [id number] REPORT IMAGES AND/OR SCANNED DOCUMENTS ONLY VIEWABLE IN PDF FORMAT The immunohistochemical test(s) cited in this report, if any, was developed and its performance characteristics determined by [facility] Pathology Department. It has not been cleared or approved by the U.S. Food and Drug Administration. The FDA has determined that such clearance or approval is not necessary. This test is used for clinical purposes. It should not be regarded as investigational or for research. [facility] Laboratory is certified under the Clinical [...] part or completely in the following laboratories: [facility], [facility] [place] [address] [facility], [address] [place] [address]. Charles Real MD LAB PATHOLOGY ORDERABLES Final Result from Last 3 Months Insurance [facility] Constant Ins[employer] O [facility] [place] Care Teams Bus And Trolley Inspecting Dispatcher Relationship Specialty Start Date End Date No, Physician PCP - General 06/10/19
[2024-10-04 19:08] VITALS: BP 117/73; PULSE 85; RESP 14; TEMP 36.6; O2SAT 100
--- NOTE | 2024-10-04 19:35 | ED_ITS ---
HPI - Extremity Problem General Chief complaint: Extremity Problem,Nontraumatic Stated complaint: right leg pain Time Seen by Provider: 10/04/24 19:26 Source: patient Mode of arrival: ambulatory Limitations: no limitations History of Present Illness HPI Narrative: Patient is a 34 y/o female, with PMH of SLE on hydroxychloroquine, who presents to the ED with c/o RLE pain. Patient reports she woke up this morning with pain in her right lower leg. Described as a constant throbbing in her right calf region. The throbbing radiates throughout her right leg. Has tried Tylenol, heat, ice without improvement. Is able to ambulate, denies worsening of pain with ambulation. Denies any injury or strenuous activity. No previous history of blood clots. Denies any swelling in leg. Denies chest pain or shortness b reath. Denies numbness. Denies redness or warmth, wounds. Related Data Allergies Allergy/AdvReac Type Severity Reaction Status Date / Time Sulfa (Sulfonamide Allergy Hives Verified 10/04/24 19:12 Antibiotics) Review of Systems Review of Systems: All systems reviewed & are unremarkable except as noted in HPI. All systems reviewed & are unremarkable except as noted in HPI and below PMFSH Past Medical History Medical History Lupus (systemic lupus erythematosus) Abnormal weight Undifferentiated connective tissue disease Migraines Anxiety Surgical History Surgical History Hx of tonsillectomy Hx of breast lump removal (~2018) Family History Family History Mother Melanoma Social History Social History Social History: Caffeine-300mg daily Smoking status: Never smoker Alcohol intake: current Alcohol use details: wine or beer occasionally Substance use: never Substance use type: does not use Lack of Transportation: No Lack of Food: Never True Current Housing: I Have Housing Concerned About Future Housing: No Difficulty Paying Gas/Electric Bills: No Difficulty Paying for Meds: No Currently Unemployed: No Education: Bachelor's Degree Difficulty w/ Childcare or Family Care: No Exam Narrative: GENERAL: Well appearing, well-nourished, non-toxic, in no acute distress. HEAD: Normocephalic, atraumatic. RESPIRATORY: Airway patent, respirations nonlabored. CARDIOVASCULAR: Regular rate and rhythm without murmurs, rubs, or gallops. Pedal pulses intact and easily palpable. MUSCULOSKELETAL: Moves all extremities. No gross deformities. No appreciable swelling of right lower extremity. No warmth, erythema, wounds. No evidence of infection. Mild tenderness throughout right posterior calf. SKIN: Warm, dry, normal color. NEURO: A&O X3. Speech clear. Cranial nerves II-XII grossly intact. Steady gait. No ataxic movements. PSYCHIATRIC: Appropriate mood and affect. Normal interaction. Course Vital Signs Vital signs: Vital Signs Temperature 98 F 10/04/24 19:08 Pulse Rate 85 10/04/24 19:08 Respiratory Rate 14 10/04/24 19:08 Blood Pressure 117/73 10/04/24 19:08 Pulse Oximetry 100 10/04/24 19:08 Oxygen Delivery Room Air 10/04/24 19:08 Temperature 98 F 10/04/24 19:08 Pulse Rate 85 10/04/24 19:08 Respiratory Rate 14 10/04/24 19:08 Blood Pressure 117/73 10/04/24 19:08 Pulse Oximetry 100 10/04/24 19:08 Oxygen Delivery Room Air 10/04/24 19:08 MDM - Extremity (Nontraumatic) MDM Narrative Medical decision making narrative: Patient presented to ED with 1 day history of right calf pain. Vital signs stable. In no acute distress. No signs of neurologic or vascular compromise on physical examination. Good pedal pulses, normal temp/color of leg. No infectious signs. No swelling. Compartments are soft without signs of compartment syndrome. No direct injury to suggest need for x-ray imaging. Venous Doppler ultrasound of right lower extremity was obtained and negative for DVT. Pain is likely consistent with muscular strain. Discussed this with patient. Discussed rice therapy. Will give short course of muscle relaxers. Patient is felt to be stable for discharge home and further outpatient management and treatment. Given return precautions. Discharged in stable condition. Differential Diagnosis Differential diagnosis: Likely cellulitis, superficial thrombophlebitis, lower extremity edema, deep vein thrombosis of lower extremity and other (Muscular strain, arterial occlusion, cellulitis) Medical Records Attestation: I reviewed the patient's medical records. Imaging Data Attestation: I personally reviewed and interpreted this imaging study as follows: Radiologist's impression: ITS Impressions Venous Doppler Study 10/04/24 19:59 IMPRESSION: Patent right lower extremity veins. No evidence of deep venous thrombosis. Discharge Plan Discharge Clinical Impression: Pain of right lower extremity Patient Disposition: Home, Self-Care Condition: Stable Instructions: Antibiotic Form, Musculoskeletal Pain (ED), Leg Pain (ED) Additional Instructions: Your imaging did not show evidence of blood clots. You likely strained her muscles. Continue Tylenol, ibuprofen, ice as needed for pain. Take muscle relaxers as needed and prescribed. Recommend taking these at night as they may cause sedation. Do not drive, operate heavy machinery, drink alcohol while on muscle relaxers as this may cause further sedation. Elevate leg when able. Follow-up with primary care doctor for further evaluation if needed. Return to the ED if you experience worsening or severe pain, numbness, severe swelling of lower extremity, redness or warmth of lower extremity, fevers, chest pain, shortness of breath, or any other symptoms of concern. Patient Language: Singaporean Prescriptions: New cyclobenzaprine 5 mg tablet 5 mg PO TID PRN (Reason: muscle spasm) Qty: 5 0RF No Action hydroxychloroquine [Plaquenil] 200 mg tablet 400 mg PO DAILY Qty: 60 4RF Wegovy 1 mg/0.5 mL pen injector 1 mg subcut WEEKLY Qty: 2 1RF Follow-up/Referrals: Ronal Herrera MD [Primary Care Provider] - Time of Disposition: 20:19
--- NOTE | 2024-10-04 19:40 | PC.NURSE ---
patient to ultrasound at this time
--- OUTSIDE RECORDS SUMMARY | 2024-10-04 20:07 | XMS_ITS | Referral Summary ---
Author Organization [facility] [employer] Address [address] [facility] [place] [address] Care Team Providers Care Medical Secretary Name Role Phone Unavailable Primary Care Provider Unavailabl e Source Comments [facility],non-owned Affiliates and Associated Physician Practices is amultiple site organization consisting of ambulatory clinics and hospital sitesin [place], [place], [place] and [place]. This disclosure is being madepursuant to the Care Everywhere program and may not contain all information available regarding this patient. Last updated 18.[facility] [employer] Allergies Active Allergy Reactions Criticality Noted Date [...] file Administered Medications PATTI HERNANDEZ Personal/Family Spouse [facility] [place] [address] PATTI HERNANDEZ Personal/Family Spouse [address] [place] [address] [place] [address] PATTI HERNANDEZ Personal/Family Spouse [address] [place] [address] [place] [address]
--- OUTSIDE RECORDS SUMMARY | 2024-10-04 20:07 | XMS_ITS | Clinical Summary ---
Author Organization [facility] [employer] Address [address] [facility] [place] [address] Care Team Providers Care Research Associate Professor Name Role Phone Unavailable Primary Care Provider Unavailabl e Source Comments [facility],non-owned Affiliates and Associated Physician Practices is amultiple site organization consisting of ambulatory clinics and hospital sitesin [place], [place], [place] and [place]. This disclosure is being madepursuant to the Care Everywhere program and may not contain all information available regarding this patient. Last updated 18.[facility] [employer] Allergies Active Allergy Reactions Criticality Noted Date [...] this topic MENINGOCOCCAL VACCINE Aged Out No zayda jennie eligible based on patient's age to complete this topic PNEUMOCOCCAL VACCINE Aged Out No long er eligible based on patient's age to complete this topic PATTI ESTEVEZ Personal/Family Spouse [facility] [facility] [place] [address] PATTI ESTEVEZ Personal/Family Spouse [address] [facility] [place] [place] [address] PATTI ESTEVEZ Personal/Family Spouse [address] [facility] [place] [address]
--- OUTSIDE RECORDS SUMMARY | 2024-10-04 20:07 | XMS_ITS | Referral Summary ---
Author Organization [facility] Address [address] [place] [address] Care Team Providers Care Prospecting Driller Helper Name Role Phone No, Physician Primary Care Provider [phone] Encounters Date Type Department Care Team Description 07/18/2024 1:45 PM REGISTERED REPRESENTATIVE Office Visit [facility] [address] [facility] Medical [address], [place] [address] Charles Real MD Postop check (Primary Dx) 07/05/2024 Telephone [facility] Office Building [address], [place] [address] Charles Real MD postop question 07/04/2024 Orders Only [facility] Operating Room [address] [place] [address] Charles Real MD 07/04/2024 9:15 AM REGISTERED REPRESENTATIVE - 07/04/2024 11:35 AM REGISTERED REPRESENTATIVE Surgery [facility] Operating Room [address] [place] [address] Charles Real MD Laparoscopic Bilateral Salpingectomy 07/04/2024 9:46 AM REGISTERED REPRESENTATIVE Anesthesia Event [facility] Operating Room [address] [place] [address] Joshua Sheriff MD Salameh, Besan Mohammed, PA 07/04/2024 7:21 AM REGISTERED REPRESENTATIVE - 07/04/2024 12:50 PM REGISTERED REPRESENTATIVE Hospital Encounter [facility] Operating Room [address] [place] [address] Charles Real MD Missed ; Encounter for [...] on file Legal Sex Female 4:14 AM REGISTERED REPRESENTATIVE Gender Identity Not on file Sexual Orientation Not on file 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 Not on file Not on file Last Filed Vital Signs Vital Sign Reading Time Taken Comments Blood Pressure 95/70 07/04/2024 12:10 PM REGISTERED REPRESENTATIVE Pulse 70 07/04/2024 12:10 PM REGISTERED REPRESENTATIVE Temperature 36.7 C (98.1 F) 07/04/2024 11:00 AM REGISTERED REPRESENTATIVE Respiratory Rate 17 07/04/2024 12:10 PM REGISTERED REPRESENTATIVE Oxygen Saturation 100% 07/04/2024 12:10 PM REGISTERED REPRESENTATIVE Inhaled Oxygen Concentration - - Weight 64.9 kg (143 lb) 07/18/2024 1:50 PM REGISTERED REPRESENTATIVE Height 157.5 cm (5' 2 ) 07/18/2024 1:50 PM REGISTERED REPRESENTATIVE Body Mass Index 26.16 07/18/2024 1:50 PM REGISTERED REPRESENTATIVE Plan of Treatment Not on file Procedures Procedure Name Priority Date/Time Associated Diagnosis Comments AL AN PROCEDURE PLACEHOLDER Routine 07/04/2024 11:02 AM REGISTERED REPRESENTATIVE AL AN ELECTIVE ENDOTRACHEAL AIRWAY Routine 07/04/2024 11:02 AM REGISTERED REPRESENTATIVE SURGICAL PATHOLOGY Routine 07/04/2024 10 :24 AM REGISTERED REPRESENTATIVE SUCTION DILATION AND CURETTAGE 07/04/2024 9:50 AM REGISTERED REPRESENTATIVE Missed Encounter for contraceptive management, unspecified type LAPAROSCOPIC SALPINGECTOMY 07/04/2024 9:50 AM REGISTERED REPRESENTATIVE Missed Encounter for contraceptive management, unspecified type from Last 3 Months Results * AL AN ELECTIVE ENDOTRACHEAL AIRWAY, AL AN PROCEDURE PLACEHOLDER (07/04/2024 11:02 AM REGISTERED REPRESENTATIVE) Narrative Millie Hilton CRNA - 07/04/2024 11:02 AM REGISTERED REPRESENTATIVE Millie Hilton CRNA 07/04/2024 11:03 AM Airway Patient location: OR Urgency: elective Indications for airway management: anesthesia Difficult airway: no Staff: Placed by: FORKLIFT MECHANIC: Millie Hilton CRNA Emergent airway documentation: Risks [...] Result * Surgical pathology (07/04/2024 10:24 AM REGISTERED REPRESENTATIVE) Fallopian tube, sterilization 07/04/2024 10:24 AM REGISTERED REPRESENTATIVE 07/04/2024 12:48 PM REGISTERED REPRESENTATIVE Narrative 07/05/2024 1:36 PM REGISTERED REPRESENTATIVE [address] [address] Tele: Kesha Casey MD - Property Assessment Monitor Note to Patients: This report may contain [...] PATHOLOGY REPORT Patient Name: PATTI HERNANDEZ Address: [address] [place] [address] Gender: F : 1990 (Age: 34) Service: Surgery Location: [facility] OR [place], Hospital #: [id number] Patient Type: [facility] SAME DAY SURGERY Taken: 07/04/2024 Received 07/04/2024 [...] are sectioned to show an unremarkable lumen. Electronic News Gathering Camera Person sections are submitted as follows: as follows: A1 - One fallopian tube A2 - Opposing fallopian tube B. Received in formalin labeled PATTI HERNANDEZ and products of conception is a suction container containing multiple rg tissue fragments, 3 x 2 x 1 cm in aggregate. No definitive parts are grossly identified. Possible villous tissue is identified. Electronic News Gathering Camera Person sections including the possible villous tissue are submitted in B1-B2. jxi/07/04/2024 12:59 ANGLE,NERISSA MICROSCOPIC DESCRIPTION: Microscopic examination supports the above captioned diagnoses. Clerical Data Follows A; [id number] B; [id number] REPORT IMAGES AND/OR SCANNED DOCUMENTS ONLY VIEWABLE IN PDF FORMAT The immunohistochemical test(s) cited in this report, if any, was developed and its performance characteristics determined by [facility] Pathology Department. It has not been cleared or approved by the U.S. Food and Drug Administration. The FDA has determined that such clearance or approval is not necessary. This test is used for clinical purposes. It should not be regarded as investigational or for research. [facility] Laboratory is certified under the Clinical Laboratory [...] part or completely in the following laboratories: [facility], [facility] [place] [address] [facility], [address] [place] [address]. Charles Real MD LAB PATHOLOGY ORDERABLES Final Result from Last 3 Months Insurance [facility] [employer] O [facility] [place] [employer] [place] [employer] [place] [employer] [place] [employer] [place] Care Teams Prospecting Driller Helper Relationship Specialty Start Date End Date No, Physician PCP - General 06/10/19
--- OUTSIDE RECORDS SUMMARY | 2024-10-04 20:07 | XMS_ITS | Clinical Summary ---
Author Organization [facility] Address [address] [place] [address] Care Team Providers Care Hospital Plan Administrator Name Role Phone No, Physician Primary Care Provider [phone] Allergies Active Allergy Reactions Criticality Noted Date [...] of 34 years. Plan: Repeat ultrasound at [place] [facility] in 1-2 months We [...] Department Care Team Description 07/18/2024 1:45 PM TIMING INSPECTOR Office Visit [facility] [address] [facility] Office Building [address] [place] [phone] Charles Real MD Postop check (Primary Dx) 07/05/2024 Telephone [facility] [address] [facility] [address] [place] [address] [phone] Charles Real MD postop question 07/04/2024 9:46 AM TIMING INSPECTOR Anesthesia Event [facility] Operating Room [facility] [place] [address] Joshua Sheriff MD Salameh, Besan Mohammed, [place] 07/04/2024 9:15 AM TIMING INSPECTOR - 07/04/2024 11:35 AM TIMING INSPECTOR Surgery [facility] Operating Room [facility] [place] [address] Charles Real MD Laparoscopic Bilateral Salpingectomy 07/04/2024 7:21 AM TIMING INSPECTOR - 07/04/2024 12:50 PM TIMING INSPECTOR Hospital Encounter [facility] Operating Room [address] [place] [phone] Charles Real MD Missed ; Encounter for contraceptive management, unspecified type Discharge Disposition: Discharge to home or self care 07/04/2024 Orders Only [facility] Operating Room [address] [place] [phone] Charles Real MD from Last 3 [...] on file Legal Sex Female 4:14 AM TIMING INSPECTOR Gender Identity Not on file Sexual Orientation Not on file 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 Not on file Not [...] site: abdominal incision(s) well healed, soft, non-tender Portainer Operator exam: not indicated at this appointment Assessment/Plan: Meeting all postoperative milestones Pathology reviewed Safe to resume gentle exercise, and sexual activity now Follow up: here in 6 months for WWE Discussed potential need for OCPs if the ovarian cysts recur Charles Real MD NG INSPECTOR Last Filed Vital Signs Vital Sign Reading Time Taken Comments Blood Pressure 95/70 07/04/2024 12:10 PM TIMING INSPECTOR Pulse 70 07/04/2024 12:10 PM TIMING INSPECTOR Temperature 36.7 C (98.1 F) 07/04/2024 11:00 AM TIMING INSPECTOR Respiratory Rate 17 07/04/2024 12:10 PM TIMING INSPECTOR Oxygen Saturation 100% 07/04/2024 12:10 PM TIMING INSPECTOR Inhaled Oxygen Concentration - - Weight 64.9 kg (143 lb) 07/18/2024 1:50 PM TIMING INSPECTOR Height 157.5 cm (5' 2 ) 07/18/2024 1:50 PM TIMING INSPECTOR Body Mass Index 26.16 07/18/2024 1:50 PM TIMING INSPECTOR Plan of Treatment Health Maintenance Due Date [...] Procedure Name Priority Date/Time Associated Diagnosis Comments WV AN PROCEDURE PLACEHOLDER Routine 07/04/2024 11:02 AM TIMING INSPECTOR W[place] AN ELECTIVE ENDOTRACHEAL AIRWAY Routine 07/04/2024 11:02 AM TIMING INSPECTOR SURGICAL PATHOLOGY Routine 07/04/2024 10 :24 AM TIMING INSPECTOR SUCTION DILATION AND CURETTAGE 07/04/2024 9:50 AM TIMING INSPECTOR Missed Encounter for contraceptive management, unspecified type LAPAROSCOPIC SALPINGECTOMY 07/04/2024 9:50 AM TIMING INSPECTOR Missed Encounter for contraceptive management, unspecified type from Last 3 Months Results * WV AN ELECTIVE ENDOTRACHEAL AIRWAY, WV AN PROCEDURE PLACEHOLDER (07/04/2024 11:02 AM TIMING INSPECTOR) Narrative Millie Hilton CRNA - 07/04/2024 11:02 AM TIMING INSPECTOR Millie Hilton CRNA 07/04/2024 11:03 AM Airway Patient location: OR Urgency: elective Indications for airway management: anesthesia Difficult airway: no Staff: Placed by: DIRECTOR OF REGIONAL SALES: Millie Hilton CRNA Emergent airway documentation: Risks [...] Result * Surgical pathology (07/04/2024 10:24 AM TIMING INSPECTOR) Fallopian tube, sterilization 07/04/2024 10:24 AM TIMING INSPECTOR 07/04/2024 12:48 PM TIMING INSPECTOR Narrative 07/05/2024 1:36 PM TIMING INSPECTOR [place] [id number] [place], [place] [address] Tele: Kesha Casey MD - Screening Unit Registered Nurse Note to Patients: This report may contain [...] PATHOLOGY REPORT Patient Name: CHRISTIAN HERNANDEZ Address: [address] [place] [address] Gender: F : 1990 (Age: 34) Service: Surgery Location: [facility] [place], Hospital #: [id number] Patient Type: [facility] SAME DAY SURGERY Taken: 07/04/2024 Received 07/04/2024 [...] are sectioned to show an unremarkable lumen. Power And Recovery Superintendent sections are submitted as follows: as follows: A1 - One fallopian tube A2 - Opposing fallopian tube B. Received in formalin labeled CHRISTIAN ZENAIDA and products of conception is a suction container containing multiple rg tissue fragments, 3 x 2 x 1 cm in aggregate. No definitive parts are grossly identified. Possible villous tissue is identified. Power And Recovery Superintendent sections including the possible villous tissue are submitted in B1-B2. jxi/07/04/2024 12:59 LKB,JXI MICROSCOPIC DESCRIPTION: Microscopic examination supports the above captioned diagnoses. Clerical Data Follows A; [id number] B; [id number] REPORT IMAGES AND/OR SCANNED DOCUMENTS ONLY VIEWABLE IN PDF FORMAT The immunohistochemical test(s) cited in this report, if any, was developed and its performance characteristics determined by [facility] Pathology Department. It has not been cleared or approved by the U.S. Food and Drug Administration. The FDA has determined that such clearance or approval is not necessary. This test is used for clinical purposes. It should not be regarded as investigational or for research. [facility] Laboratory is certified under the Clinical Laboratory [...] part or completely in the following laboratories: [facility], [facility] [address], [address] [place] [address]. Charles Real MD LAB PATHOLOGY ORDERABLES Final Result from Last 3 Months Insurance AETNA [facility] HMO [facility] [place] [employer] [place] [address] [employer] [place] Care Teams Hospital Plan Administrator Relationship Specialty Start Date End Date No, Physician PCP - General 06/10/19
--- OUTSIDE RECORDS SUMMARY | 2024-10-04 20:07 | XMS_ITS | Patient Health Summary ---
Author Organization [facility] [employer] Address [address] [facility] [place] [address] Care Team Providers Care Regional Sales Consultant Name Role Phone Unavailable Primary Care Provider Unavailabl e Note from [facility],non-owned Affiliates and Associated Physician Practices is amultiple site organization consisting of ambulatory clinics and hospital sitesin [place], [place], [place] and [place]. This disclosure is being madepursuant to the Care Everywhere program and may not contain all information available regarding this patient. Last updated 18.[facility] [employer] Allergies * Sulfa Drugs(Hives) * Sulfa Drugs(Urticaria) [...] SAMPLE S / Unknown 12/05/2016 Fernando Sam APRN-DOG WALKER LAB - POINT OF CARE ORDERABLES * [...]
[2024-10-04] MEDS: KETOROLAC (*BKC) 60 MG/2 ML VIAL IM (20:36)
== END 2024-10-04 20:41 | disposition home or self-care (01) ==
PROVIDERS: Emergency Provider Physician Assistant; PCP Family Medicine
DX: M79.604 Pain in right leg (principal); M32.9 Systemic lupus erythematosus, unspecified; F41.9 Anxiety disorder, unspecified
CPT/HCPCS: 93971; 96372; 99284; J1885

== ENCOUNTER 2025-04-03 09:48 | Outpatient (CLI) | payer BC, SELFPAY ==
--- OUTSIDE RECORDS SUMMARY | 2025-04-03 10:38 | XMS_ITS | Clinical Summary ---
Author Organization [facility] Address [address] [place] [address] Care Team Providers Care Top Printing Press Operator Name Role Phone No, Physician Primary Care Provider [phone] Allergies Active Allergy Reactions Criticality Noted Date [...] tablets of the 200mg to equal 600mg. 4 Active Additional Information Patient not taking.Reported on 02/06/2025 ibuprofen (ADVIL,MOTRIN) 600 mg tablet Take 1 tablet (600 mg total) by mouth every 6 (six) hours as needed for pain Take with food 20 tablet 4 Active Additional Information Patient not taking.Reported on 02/06/2025 Active Problems Problem Noted Date Diagnosed Date [...] of 34 years. Plan: Repeat ultrasound at [facility] in 1-2 months We discussed possible surgical [...] of breast cancer with use of OCP Encounters Date Type Department Care Team Description 02/14/2025 Results Follow-Up [facility] [address] [place] [address] Office [facility] [address] [place] [address] [phone] Eugenie Cheung NP IGP, Apt HPV,rfx 16/18,45 02/06/2025 11:00 AM CDT Office Visit [facility] [address] [place] [address] [place] [address] [phone] Eugenie Cheung NP Well woman exam with routine gynecological exam (Primary Dx); Pap smear for cervical cancer screening from Last 3 Months Immunizations Immunization Administration Dates Next Due Influenza, Trivalent, IM (MDV) 05/06/2016 Tdap 07/15/2016 Surgical History Surgery Date Site/Laterality Comments 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 Monthly or less 02/06/2025 Q2: How many drinks containi ng alcohol do you have on a typical day when you are drinking? 1 or 2 02/06/2025 Q3: How often do you have si x or more drinks on one occasion? Never 02/06/2025 Personal Safety Answer Date Recorded Have you ever been in or are you currently in a harmful physical or emotional relationship or is someone making you feel afraid or unsafe? 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 Not on file Not on file Not on file Obstetrics History Para Term AB IAB SAB Ectopic Multiple Livin g Live Births 3 1 1 0 1 0 1 0 0 1 1 Date Outcome GA Total Labor Labor/2nd/3rd Weight Sex Type Anes PTL Cristina A1 A5 Name Clin 2016 Term M Vaginal Living Higinio 06/05 23 SAB SAB Comments 2016-Vag, Male-Higinio Summary Episode Dates Number of Fetuses Estimated Date of Delivery 04/27/2024 - Present (04/03/2025) Unknown Vitals Pregravid Weight Height TWG (As of 04/03/2025) Pregrav id BMI 157.5 cm (5' 2) Notes Progress Notes - Office Visi t - 02/06/2025 - [place]: 02/06/2025 - Eugenie Cheung NP Images from the original note were not included. Annual Exam Subjective: Patti Estevez is a 35 y.o. female who presents for annual exam HPI: Patti presents for annual. She is doing well and has no DATA MANAGEMENT CONSULTANT complaints. She is s/p bilat salpingectomy. Periods are now regular and she has not had any issues w/ ovarian cysts since. Pap today. Last 2020. Denies h/o abnormal pap. Current Medications: Current Outpatient Medications Medication Sig Dispense Refill hydroxychloroquine (PLAQUENIL) 200 mg tablet Take 1 tablet (200 mg total) by mouth 2 (two) times a day No current facility-administered medications for this visit. Medical History: Past Medical History: Diagnosis Date Lupus Allergies: Allergies Allergen Reactions Sulfa (Sulfonamide Antibiotics) Hives Obstetric History: OB History Para Term AB Living 3 1 1 0 1 1 SAB IAB Ectopic Multiple Live Births 1 0 0 0 1 # Outcome Date GA Lbr Timoteo/2nd Weight Sex Type Anes PTL Lv 3 2 SAB 05/2023 SAB 1 Term 2016 M Vaginal CRISTINA Name: Higinio Obstetric Comments 2016-Vag, Male-Higinio Gynecologic History: Patient's last menstrual period was 01/20/2025. 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 DILATION AND CURETTAGE OF UTERUS 07/04/2024 w/BS Family History: Family History Problem Relation Age of Onset Breast cancer Paternal Grandmother Breast cancer Maternal Grandmother No Known Problems Father Skin cancer Mother No Known Problems Sister Breast cancer Mother's Sister Social History: Social History Tobacco Use Smoking status: Never Smokeless tobacco: Never Substance and Sexual Activity Drug use: Yes Types: Alcohol Sexual activity: Yes Partners: Male Comment: Tubes removed Alcohol Use: Not At Risk (02/06/2025) AUDIT-C Frequency of Alcohol Consumption: Monthly or less Average Number of Drinks: 1 or 2 Frequency of Binge Drinking: Never Objective BP 108/68 Wt 125 lb (56.7 kg) LMP 01/20/2025 Unknown BMI 22.86 kg/m Physical Exam General: alert, orientated, cooperative Breast: normal in appearance, no nipple discharge, no lumps, no skin changes Hospitality Housekeeper exam: Pt was offered a pillowcase turner on wwe form,declined External:normal appearing and no lesions Urethra: normal appearing, No lesions or prolapse. Vagina: Healthy, pink mucosa without lesions, no abnormal discharge or bleeding Cervix: Normal, no lesions Uterus: Normal size, non tender Adnexa: non-tender and no palpable masses Assessment and Plan Patti Estevez is a 35 y.o. female 1. Well woman exam with routine gynecological exam (Primary) The patient was here for her well woman exam. She is doing fine. We discussed healthy lifestyle choices such as exercise, diet, multivitamins. Discussed screening MMG normally annual starting at age 40. Would consider starting at 35 for her given family h/o breast cancer in maternal and paternal grandmothers. She plans to follow up again in one year. Pap and HPV co-testing was done. RTO 1 year/prn Eugenie Cheung NP Progress Notes - Office Visi t - 07/18/2024 - [place]: 07/18/2024 - Asmita Real MD Images from the original note were not included. Postoperative Visit Patti Estevez is a 34 y.o. returning for a post op visit. She is 2 weeks s/p suction D&C . Pathology: POC plus 2 complete fallopian tubes Patti reports no vaginal bleeding, no pain, and normal healing of the incisions Current Outpatient Medications: hydroxychloroquine, 200 mg, oral, BID ibuprofen, 600 mg, oral, Q6H PRN ibuprofen, 600 mg, oral, Q6H PRN Wegovy, 0.25 mg, subcutaneous, Q7 Days Vitals Ht 157.5 cm (5' 2) Wt 143 lb (64.9 kg) BMI 26.16 kg/m Physical Exam: General: alert, orientated Surgical site: abdominal incision(s) well healed, soft, non-tender Hospitality Housekeeper exam: not indicated at this appointment Assessment/Plan: Meeting all postoperative milestones Pathology reviewed Safe to resume gentle exercise, and sexual activity now Follow up: here in 6 months for WWE Discussed potential need for OCPs if the ovarian cysts recur Charles Real MD T SECURITY OFFICER Last Filed Vital Signs Vital Sign Reading Time Taken Comments Blood Pressure 108/68 02/06/2025 11:05 AM CDT Pulse 70 07/04/2024 12:10 PM EVENT SECURITY OFFICER Temperature 36.7 C (98.1 F) 07/04/2024 11:00 AM EVENT SECURITY OFFICER Respiratory Rate 17 07/04/2024 12:10 PM EVENT SECURITY OFFICER Oxygen Saturation 100% 07/04/2024 12:10 PM EVENT SECURITY OFFICER Inhaled Oxygen Concentration - - Weight 56.7 kg (125 lb) 02/06/2025 11:05 AM CDT Height 157.5 cm (5' 2) 07/18/2024 1:50 PM EVENT SECURITY OFFICER Body Mass Index 22.86 07/18/2024 1:50 PM EVENT SECURITY OFFICER Plan of Treatment Health Maintenance Due Date Last Done Comments Cervical Cancer Screening 1990 Depression Screening 1990 Hepatitis C Screening 1990 Varicella Vaccines (1 of 2 - 13+ 2-dose series) 01/19/2004 Hepatitis B Screening 2009 Pneumococcal vaccine <65 (1 of 2 - PCV) 2010 Zoster Vaccine (1 of 2) 2010 HPV Vaccines (1 - 3-dose SCDM series) 2018 Covid-19 Vaccine ( season) 2024 08/23/2021, 12/13/2020, 11/17/2020 Influenza Vaccine (#1) 2025 , 05/22/2019, 05/06/2016 Regular Well Visit/Exam 18-64 02/06/2026 02/06/2025 DTaP/Tdap/Td Vaccine (2 - Td or Tdap) 07/15/2026 Procedures Procedure Name Priority Date/Time Associated Diagnosis Comments IGP, APT HPV,RFX 16/18,45 Routine 02/06/2025 11:04 AM CDT Pap smear for cervical cancer screening from Last 3 Months Results * IGP, Apt HPV,rfx 16/18,45 (02/06/2025 11:04 AM CDT) Clinical indication Comment [facility] - 01 Comment:NEGATIVE FOR INTRAEP ITHELIAL LESION OR MALIGNANCY. Specimen adequacy: Comment [facility] - 01 Comment: Satisfactory for evaluation. Endocervical and/or squamous metaplastic cells (endocervical component) are present. Clinician provided ICD10 Comment [facility] - 01 Comment:Z12.4 Performed by Comment [facility] - 01 Comment:Sarah Bunn, Cyto logist (ASCP) . . [facility] - 01 Note: Comment [facility] - 01 Comment: The Pap smear is a screening test designed to aid in the detection of premalignant and malignant conditions of the uterine cervix. It is not a diagnostic procedure and should not be used as the sole means of detecting cervical cancer. Both false-positive and false-negative reports do occur. Test methodology Comment [facility] - 01 Comment: This liquid based ThinPrep(R) pap test was screened with the use of an image guided system. HPV Aptima Negative Negative [facility] 02 Comment: This nucleic acid amplification test detects fourteen high-risk HPV types (16,18,31,33,35,39,45,51,52,56,58,59,66,68) without differentiation. Thin Prep-Cervical/ Endocervical 02/06/2025 11:04 AM CDT 02/06/2025 Narrative [facility] - 02/08/2025 8:36 AM CDT Performed at: - [address] [id number] Assembler Dielectric Heater: Kiersten Heaton MD, Phone: [phone] Performed at: - [address] [id number] Assembler Dielectric Heater: Kiersten Heaton MD, Phone: [phone] Specimen Comment: [id number] Specimen Comment: No. of containers..01 ThinPrep Vial Eugenie Cheung TUNNEL KILN OPERATOR LAB PATHOLOGY ORDERABL ES Final Result [facility] - 01 [facility] 02 from Last 3 Months Insurance [facility] [place] [address] [facility] [place]-DISPO [place] Care Teams Top Printing Press Operator Relationship Specialty Start Date End Date No, Physician PCP - General 06/10/19
--- OUTSIDE RECORDS SUMMARY | 2025-04-03 10:38 | XMS_ITS | Clinical Summary ---
Author Organization [facility] Address [address] [place] [address] Care Team Providers Care Underwriting Assistant Name Role Phone Unavailable Primary Care Provider Unavailabl e Source Comments [facility],non-owned Affiliates and Associated Physician Practices is amultiple site organization consisting of ambulatory clinics and hospital sitesin [place], [place], [place] and [place]. This disclosure is being madepursuant to the Care Everywhere program and may not contain all information available regarding this patient. Last updated 18.[facility] Allergies Active Allergy Reactions Criticality Noted Date Comments Sulfa Drugs 06/15/2015 Hives Sulfa Drugs Urticaria Medium 12/03/2016 Medications * Be aware that medications may not be up to date on this document. Alwaysverify current medications with the patient. citalopram (CELEXA) 40 MG tablet Take 40 mg by mouth once daily Active Other Migraine pill Active naproxen (NAPROSYN) 500 MG tablet Take 1 Tab by mouth 2 times daily as needed for Pain 20 Tab 0 5 Active Citalopram Hydrobromide (CITALOPRAM PO) Take 20 mg by mouth Active Social History Tobacco Use Types Packs/Day Years Used Date Smoking Tobacco: Never Smokeless Tobacco: Never Alcohol Use Standard Drinks/Week Comments Yes 0 (1 standard drink = 0.6 oz pur e alcohol) occasional Comments No Sex and Gender Information Value Date Recorded Sex Assigned at Not on file Legal Sex Female 3:51 PM CDT Gender Identity Not on file Sexual Orientation [...] 9:03 AM CDT Height 157.5 cm (5' 2) 04/25/2020 9:03 AM CDT Body Mass Index 26.52 04/25/2020 9:03 AM CDT Plan of Treatment Health Maintenance Due Date Last Done Comments HIV SCREENING 2006 HEPATITIS C SCREENING 01/13/2009 DTAP/TDAP/TD VACCINES (1 - Tdap) 2010 HEPATITIS B VACCINE (1 of 3 - 19+ 3-dose series) 2010 PAP SMEAR 01/19/2012 HPV VACCINE (1 - 3-dose SCDM series) 2018 COVID-19 VACCINE (3 - 2023-2 5 season) 2024 12/13/2020, 11/17/2020 DEPRESSION SCREENING 08/17/2024 INFLUENZA VACCINE (#1) 2025 05/06/2016 ZOSTER VACCINE (1 of 2) 2041 HIB VACCINE Aged Out No longer eligi ble based on patient's age to complete this topic MENINGOCOCCAL (Group B) VACCINE SHARED DECISION-MAKING Aged Out No longer eligible based on patient's age to complete this topic MENINGOCOCCAL GROUPS A/C/Y/W VACCINE Aged Out No longer eligible b ased on patient's age to complete this topic PNEUMOCOCCAL VACCINE Aged Out No long er eligible based on patient's age to complete this topic Insurance [employer] AETNA [facility] SELF PAY NO INSURANCE Member Subscriber Plan / Payer (Ef fective for All Dates) Name:Patti Hernandez Member ID:Not on file Relation to Subscriber:Not on file Name:PATTI HERNANDEZ Subscriber ID:Not on file Address: [facility] [address] [place] [address] Payer ID:Not on file Group ID:Not on file Type:Self Pay Address: [place], [place] * Guarantor: PATTI HERNANDEZ Account Type Relation to Patient Date of Phone Billing Address Personal/Family Spouse [facility] [address] [place] [phone] SELF PAY NO INSURANCE Member Subscriber Plan / Payer (Ef fective for All Dates) Name:Patti Hernandez Member ID:Not on file Relation to Subscriber:Not on file Name:PATTI HERNANDEZ Subscriber ID:Not on file Address: [facility] [address] [place] [address] Payer ID:Not on file Group ID:Not on file Type:Self Pay Address: [place], [place] * Guarantor: PATTI HERNANDEZ Account Type Relation to Patient Date of Phone Billing Address Personal/Family Spouse [facility] [address] SELF PAY NO INSURANCE Member Subscriber Plan / Payer (Ef fective for All Dates) Name:Patti Hernandez Member ID:Not on file Relation to Subscriber:Not on file Name:PATTI HERNANDEZ Subscriber ID:Not on file Address: [address] [place] [address] [place] [address] Payer ID:Not on file Group ID:Not on file Type:Self Pay Address: [place], [place]
--- OUTSIDE RECORDS SUMMARY | 2025-04-03 10:38 | XMS_ITS | Encounter Summary ---
Author Organization [facility] Address [address] [address] Care Team Providers Care Rnp Name Role Phone No, Physician Primary Care Provider Encounter Details Date Type Department Care Team (Late st Contact Info) Description 02/14/2025 Results [facility] 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
[2025-04-03 13:10] LABS: Hematocrit 39.4 % (37.0-47.0); Hemoglobin 12.8 g/dL (12.0-15.0); Mean Corpuscular HGB Conc 32.5 g/dl (32-36); Mean Corpuscular Hemoglobin 29.5 pg (26-34); Mean Corpuscular Volume 90.8 fl (80-100); Platelet Count Result 205 k/mm3 (150-375); Red Blood Count 4.34 M/mm3 (4.2-5.4); White Blood Count 4.2 K/mm3 (4.5-10.0)
[2025-04-03 13:21] LABS: Add Urine Microscopic? YES; Appearance Urine Clear (Clear); Glucose Urine UA Negative (Negative); Leukocyte Esterase Ur Trace LEU/UL (Negative); Nitrate Urine Negative (Negative); Non Pathogenic Casts 0-2; Specific Grav Ur 1.011 (1.001-1.035)
[2025-04-03 13:31] LABS: Blood Urea Nitrogen 11 mg/dL (7-17); CRP < 0.5 mg/dL (<1.0); Estimated Glomerular Filt Rate > 60
[2025-04-03 13:32] LABS: Total Protein Urine Random 9 mg/dL; Ur Ttl Prot Creatinine Ratio 0.14 mg/mg (0-0.20)
== END 2025-04-03 09:49 | disposition home or self-care (01) ==
LOC: ANHGOSHLAB 09:50
PROVIDERS: PCP Family Medicine
DX: M32.8 Other forms of systemic lupus erythematosus (principal)
CPT/HCPCS: 36415; 81001; 82565; 82570; 84156; 84520; 85027; 85652; 86140